=== PATIENT | female | born 1970 | race Caucasian/White ===

== ENCOUNTER 2020-03-25 08:18 | Observation (INO) | payer OTHER ==
[~2020-03-25] VITALS: Ht 167.7 cm; Wt 131.7 kg
--- NOTE | 2020-03-25 08:38 | ED General ---
General Chief Complaint: General Problems/Pain Source of Information: Patient, EMS Exam Limitations: No Limitations History of Present Illness Date Seen by Provider: Mar 25, 2020 Time Seen by Provider: 08:33 Initial Comments Patient brought in by ambulance for awaking this morning with severe itching starting in the right arm spreading throughout her body she felt presyncopal with subsequent development of diarrhea and some abdominal cramping and then nausea and vomiting no fever is still itching no significant shortness of breath had a history of previous allergic reactions urticaria in the past and no tr eatment for this prior to arrival Timing/Duration: 1 Hour Severity: Moderate Associated Systoms: No Chest Pain; Diaphoresis, Nausea/Vomiting, Weakness, Other (vomiting and diarrhea) Allergies and Home Medications Allergies Coded Allergies: acetaminophen (Verified Allergy, Unknown, 03/25/20) hydrocodone (Verified Allergy, Unknown, 03/25/20) sulfamethoxazole (Verified Allergy, Unknown, 03/25/20) trimethoprim (Verified Allergy, Unknown, 03/25/20) Uncoded Allergies: IVP DYE (Allergy, Unknown, 03/25/20) Patient Home Medication List Home Medication List Reviewed: Yes Review of Systems Review of Systems Constitutional: diaphoresis, dizziness, weakness EENTM: no symptoms reported Respiratory: see HPI Cardiovascular: see HPI Gastrointestinal: see HPI Genitourinary: no symptoms reported Skin: see HPI Psychiatric/Neurological: No Symptoms Reported Hematologic/Lymphatic: No Symptoms Reported Immunological/Allergic: see HPI Past Oqnutvm-Xezzyv-Fjvvlx Hx Past Med/Social Hx: Reviewed Nursing Past Med/Soc Hx Patient Social History Alcohol Use: Denies Use Physical Exam Vital Signs Vital Signs - First Documented 03/25/20 03/25/20 08:25 08:47 Temp 35.9 Pulse 83 Resp 16 B/P (MAP) 118/80 (93) Pulse Ox 97 O2 Delivery Room Air O2 Flow Rate 2.00 FiO2 97 Capillary Refill : Height, Weight, BMI Height: '" Weight: lbs. oz. kg; BMI Method: General Appearance: No Apparent Distress, WD/WN Eyes: Bilateral Eye Normal Inspection, Bilateral Eye PERRL, Bilateral Eye EOMI HEENT: Pharynx Normal, Moist Mucous Membranes; No Scleral Icterus (L), No Scleral Icterus (R) Neck: Full Range of Motion, Normal Inspection, Non Tender, Supple Respiratory: Chest Non Tender, Lungs Clear, Normal Breath Sounds, No Accessory Muscle Use Cardiovascular: Regular Rate, Rhythm, No Edema, No Gallop Gastrointestinal: Normal Bowel Sounds, No Organomegaly, Non Tender, Soft Extremity: Normal Capillary Refill, Normal Inspection, Normal Range of Motion, Other (spell thrill R antecubital fossa) Neurologic/Psychiatric: Alert, Oriented x3, No Motor/Sensory Deficits, Normal Mood/Affect, player services representative II-XII Norm as Tested Skin: Normal Color, Warm/Dry Progress/Results/Core Measures Suspected Sepsis SIRS Temperature: Pulse: Respiratory Rate: Laboratory Tests 03/25/20 08:27: White Blood Count 7.2 Blood Pressure / Mean: Laboratory Tests 03/25/20 08:27: Creatinine 4.56H, Platelet Count 276, Total Bilirubin 0.2 Results/Orders Lab Results Laboratory Tests Test 03/25/20 08:27 Range/Units White Blood Count 7.2 4.3-11.0 10^3/uL Red Blood Count 3.86 L 4.35-5.85 10^6/uL Hemoglobin 11.8 11.5-16.0 G/DL Hematocrit 37 35-52 % Mean Corpuscular Volume 95 80-99 FL Mean Corpuscular Hemoglobin 31 25-34 PG Mean Corpuscular Hemoglobin Concent 32 32-36 G/DL Red Cell Distribution Width 13.6 10.0-14.5 % Platelet Count 276 130-400 10^3/uL Mean Platelet Volume 10.5 H 7.4-10.4 FL Neutrophils (%) (Auto) 45 42-75 % Lymphocytes (%) (Auto) 51 H 12-44 % Monocytes (%) (Auto) 4 0-12 % Eosinophils (%) (Auto) 0 0-10 % Basophils (%) (Auto) 0 0-10 % Neutrophils # (Auto) 3.2 1.8-7.8 X 10^3 Lymphocytes # (Auto) 3.6 1.0-4.0 X 10^3 Monocytes # (Auto) 0.3 0.0-1.0 X 10^3 Eosinophils # (Auto) 0.0 0.0-0.3 10^3/uL Basophils # (Auto) 0.0 0.0-0.1 10^3/uL Sodium Level 138 135-145 MMOL/L Potassium Level 4.8 3.6-5.0 MMOL/L Chloride Level 108 H 98-107 MMOL/L Carbon Dioxide Level 16 L 21-32 MMOL/L Anion Gap 14 5-14 MMOL/L Blood Urea Nitrogen 69 H 7-18 MG/DL Creatinine 4.56 H 0.60-1.30 MG/DL Estimat Glomerular Filtration Rate 10 BUN/Creatinine Ratio 15 Glucose Level 304 H 70-105 MG/DL Calcium Level 8.9 8.5-10.1 MG/DL Corrected Calcium 9.4 8.5-10.1 MG/DL Magnesium Level 2.0 1.6-2.4 MG/DL Total Bilirubin 0.2 0.1-1.0 MG/DL Aspartate Amino Transf (AST/SGOT) 8 5-34 U/L Alanine Aminotransferase (ALT/SGPT) 12 0-55 U/L Alkaline Phosphatase 76 40-136 U/L Troponin I < 0.30 <0.30 NG/ML Total Protein 6.9 6.4-8.2 GM/DL Albumin 3.4 3.2-4.5 GM/DL Lipase 88 H 8-78 U/L My Orders Orders - YANCY MADISON DO Cbc With Automated Diff (03/25/20 08:23) Magnesium (03/25/20 08:23) Chest 1 View Ap/Pa Only (03/25/20 08:23) Ekg Tracing (03/25/20 08:23) Comprehensive Metabolic Panel (03/25/20 08:23) O2 (03/25/20 08:23) Monitor-Rhythm Ecg Trace Only (03/25/20 08:23) Ed Iv/Invasive Line Start (03/25/20 08:23) Lipase (03/25/20 08:23) Troponin I Fs (03/25/20 08:23) Diphenhydramine Injection (Benadryl Inje (03/25/20 08:45) Methylprednisolone Sod Succ (Solu-Medrol (03/25/20 08:45) Famotidine Injection (Pepcid Injection) (03/25/20 08:45) Epinephrine 1 Mg Injection (Adrenalin I (03/25/20 08:44) Epinephrine 1 Mg Injection (Adrenalin I (03/25/20 09:00) Medications Given in ED Current Medications Medications Dose Ordered Sig/Damian Route Start Time Stop Time Status Last Admin Dose Admin Diphenhydramine HCl 25 mg ONCE ONCE IVP 03/25/20 08:45 03/25/20 08:46 DC 03/25/20 08:48 25 MG Epinephrine HCl 1 mg STK-MED ONCE .ROUTE 03/25/20 08:44 03/25/20 08:51 DC 03/25/20 08:54 0.5 MG Famotidine 20 mg ONCE ONCE IVP 03/25/20 08:45 03/25/20 08:46 DC 03/25/20 08:48 20 MG Methylprednisolone Sodium Succinate 125 mg ONCE ONCE IVP 03/25/20 08:45 03/25/20 08:46 DC 03/25/20 08:48 125 MG Vital Signs/I&O 03/25/20 03/25/20 03/25/20 08:25 08:47 10:43 Temp 35.9 36.9 Pulse 83 65 Resp 16 16 B/P (MAP) 118/80 (93) 167/66 Pulse Ox 97 100 O2 Delivery Room Air Nasal Cannula Nasal Cannula O2 Flow Rate 2.00 2.00 FiO2 97 Capillary Refill : Progress Note : Time: 08:38 Progress Note Given the patient's presentation of itching with both vomiting diarrhea generalized weakness and a history of previous allergic reactions makes jasmeet phylaxis a more likely diagnosis differential would include ACS electrolyte disturbance from her chronic renal failure as well as gastroenteritis. Plan will be antihistamines operative labs screening reevaluation to determine need for further care. ECG Initial ECG Impression Date: Mar 25, 2020 Initial ECG Impression Time: 08:59 Initial ECG Rate: 82 Initial ECG Rhythm: Normal Sinus Initial ECG Intervals: Normal Initial ECG Impression: Nonspecific Changes Departure Communication (Admissions) Time/Spoke to Admitting Phy: 09:[address] Horan who accepted the patient in stepdown observation admission status to [facility] after discussion of the case. 905: Patient had developed urticaria and continued nausea which clarified the issue that this is most likely anaphylactic reaction. Epinephrine was administered. The urticaria improved somewhat nausea and vomiting settled she received H1 blockers H2 blockers as well as steroids. The plan will be transferred to [place] once I see her chemistries for observation admission for acute anaphylactic reaction Impression Primary Impression: Anaphylaxis Disposition: 09 ADMITTED INPATIENT Condition: Improved Admissions Decision to Admit Reason: Admit from ER (General) Decision to Admit/Date: Mar 25, 2020 Time/Decision to Admit Time: 09:05 Transfer Transfer Reason: Exceeds level of care Time Spoke to Accepting Phy: 09:32 Transfer Progress Notes Local Dr. Horan who accepted the admission [place] Transfer Time: 09:20 Transfer Facility: [facility] Method of Transfer: EMS Departure-Patient Inst. Referrals: NO,LOCAL PHYSICIAN (PCP/Family) Primary Care Physician YANCY MADISON DO Mar 25, 2020 08:38
[2020-03-25 08:43] LABS: BASOPHILS % (AUTO) 0 % (0-10); EOSINOPHILS % (AUTO) 0 % (0-10); HEMATOCRIT 37 % (35-52); HEMOGLOBIN 11.8 G/DL (11.5-16.0); MEAN CORPUSCULAR HEMOGLOBIN 31 PG (25-34); MEAN CORPUSCULAR HGB CONC 32 G/DL (32-36); MEAN CORPUSCULAR VOLUME 95 FL (80-99); MEAN PLATELET VOLUME 10.5 FL (7.4-10.4); MONOCYTES % (AUTO) 4 % (0-12); NEUTROPHILS % (AUTO) 45 % (42-75); PLATELET COUNT 276 10^3/uL (130-400); RED CELL DISTRIBUTION WIDTH 13.6 % (10.0-14.5); WHITE BLOOD COUNT 7.2 10^3/uL (4.3-11.0)
[2020-03-25 08:44] LABS: LYMPHOCYTES # (AUTO) 3.6 X 10^3 (1.0-4.0); LYMPHOCYTES % (AUTO) 51 % (12-44); MONOCYTES # (AUTO) 0.3 X 10^3 (0.0-1.0); NEUTROPHILS # (AUTO) 3.2 X 10^3 (1.8-7.8)
[2020-03-25] MEDS ORDERED: EPINEPHrine INJECTION 1 MG/ML AMP ONE (08:44)
[2020-03-25] MEDS ORDERED: FAMOTIDINE 20MG/2ML IV (PEPCID) IVP ONE (08:45)
[2020-03-25] MEDS ORDERED: methylPREDNISolone 125 MG (Solu-MEDROL) VIAL IVP ONE (08:45)
[2020-03-25] MEDS ORDERED: diphenhydrAMINE 50 MG/ML INJ (BENADRYL) IVP ONE (08:45)
[2020-03-25] MEDS ORDERED: EPINEPHrine INJECTION 1 MG/ML AMP IM ONE (09:00)
[2020-03-25 09:01] LABS: POTASSIUM 4.8 MMOL/L (3.6-5.0)
[2020-03-25 09:02] LABS: BILIRUBIN,TOTAL 0.2 MG/DL (0.1-1.0); CALCIUM 8.9 MG/DL (8.5-10.1); CREATININE SERUM 4.56 MG/DL (0.60-1.30); TOTAL PROTEIN 6.9 GM/DL (6.4-8.2)
[2020-03-25 09:03] LABS: ALBUMIN 3.4 GM/DL (3.2-4.5)
--- NOTE | 2020-03-25 09:08 | Diagnostic Imaging Report ---
EXAM: CHEST 1 VIEW AP/PA ONLY INDICATION: Nausea. Diarrhea. Lightheadedness. Pruritis. COMPARISON: None. FINDINGS: Normal heart size and central pulmonary vascularity. No focal pulmonary opacity, pleural effusion or pneumothorax. No acute osseous findings IMPRESSION: No acute cardiopulmonary findings. Dictated by: Dictated on workstation # [id number]
--- OUTSIDE RECORDS SUMMARY | 2020-03-25 10:26 | XMS REPORT | Continuity of Care Document ---
Demographics Preferred Language Unknown Marital Status Unknown Confucianist Affiliation Unknown Race Unknown Ethnic Group Unknown Author Organization Unknown Address Unknown Phone Unavailable Allergies There is no data. Medications There is no data. Problems There is no data. Procedures There is no data. Results Test Result Range Complete blood count (CBC) with automate d white blood cell (WBC) differential - 03/25/20 08:27 Blood leukocytes automated count (number/volume) 7.2 10*3/uL 4.3-11.0 Blood erythrocytes automated count (number/volume) 3.86 10*6/uL 4.35-5.85 Venous blood hemoglobin measurement (mass/volume) 11.8 g/dL 11.5-16.0 Blood hematocrit (volume fraction) 37 % 35-52 Automated erythrocyte mean corpuscular volume 95 [ foz_us] 80-99 Automated erythrocyte mean corpuscular h emoglobin (mass per erythrocyte) 31 pg 25-34 Automated erythrocyte mean corpuscular h emoglobin concentration measurement (mass/volume) 32 g/dL 32-36 Automated erythrocyte distribution width ratio 13. 6 % 10.0- 14.5 Automated blood platelet count (count/volume) 276 10*3/uL 130-400 Automated blood platelet mean volume measurement 10.5 [foz_us] 7.4-10.4 Automated blood neutrophils/100 leukocytes 45 % 42-75 Automated blood lymphocytes/100 leukocytes 51 % 12-44 Blood monocytes/100 leukocytes 4 % 0-12 Automated blood eosinophils/100 leukocytes 0 % 0-10 Automated blood basophils/100 leukocytes 0 % 0-10 Blood neutrophils automated count (number/volume) 3.2 10*3 1.8-7.8 Blood lymphocytes automated count (number/volume) 3.6 10*3 1.0-4.0 Blood monocytes automated count (number/volume) 0. 3 10*3 0.0-1.0 Automated eosinophil count 0.0 10*3/uL 0 .0-0.3 Automated blood basophil count (count/volume) 0.0 10*3/uL 0.0-0.1 TROPONIN I FS - 03/25/20 08:27 TROPONIN I FS < 0.30 <0.30 Comprehensive metabolic panel - 03/25/20 08:27 Serum or plasma sodium measurement (moles/volume) 138 mmol/L 135-145 Serum or plasma potassium measurement (moles/volume) 4.8 mmol/L 3.6-5.0 Serum or plasma chloride measurement (moles/volume) 108 mmol/L 98-107 Carbon dioxide 16 mmol/L 21-32 Serum or plasma anion gap determination (moles/volume) 14 mmol/L 5-14 Serum or plasma urea nitrogen measurement (mass/volume ) 69 mg/dL 7-18 Serum or plasma creatinine measurement (mass/volume) 4.56 mg/dL 0.60-1.30 Serum or plasma urea nitrogen/creatinine mass ratio 15 NRG Serum or plasma creatinine measurement w ith calculation of estimated glomerular filtration rate 10 NRG Serum or plasma glucose measurement (mass/volume) 304 mg/dL 70-105 Serum or plasma calcium measurement (mass/volume) 8.9 mg/dL 8.5-10.1 Serum or plasma total bilirubin measurement (mass/volu me) 0.2 mg/dL 0.1-1.0 Serum or plasma alkaline phosphatase gertrudis surement (enzymatic activity/volume) 76 U/L 40-136 Serum or plasma aspartate aminotransfera se measurement (enzymatic activity/volume) 8 U/L 5-34 Serum or plasma alanine aminotransferase measurement (enzymatic activity/volume) 12 U/L 0-55 Serum or plasma protein measurement (mass/volume) 6.9 g/dL 6.4-8.2 Serum or plasma albumin measurement (mass/volume) 3.4 g/dL 3.2-4.5 CALCIUM CORRECTED 9.4 mg/dL 8.5-10.1 Magnesium - 03/25/20 08:27 Magnesium 2.0 mg/dL 1.6-2.4 Lipase - 03/25/20 08:27 Lipase 88 U/L 8-78 Encounters ACCT No. Visit Date/Time Discharge Status Pt. Type Provider Facility Loc./Unit Complaint [id number] 03/25/2020 08:44:00 Document Registration
[2020-03-25 12:00] VITALS: BP 138/82
--- NOTE | 2020-03-25 12:33 | History & Physical-Hospitalist ---
History of Present Illness HPI/Chief Complaint Pt is a 49yoCF with a PMH of IDDMII, HTN, CKD Stage 5 not yet on dialysis who presented to the ER due to itching, nausea, vomiting. She states that she woke up with itching in her arm. She walked to the bathroom and then developed itching over her whole body. She then got very nauseated and started vomiting. She then developed SOB and had a near syncopal episode. She told her to call EMS at that time. She has had a previous similar episode roughly 2 years ago. She does not have an epipen at home despite this. Source: patient Date Seen 03/25/20 Time Seen by a Provider: 12:33 Attending Physician Dayron Lux MD PCP No,Local Physician Referring Physician Date of Admission Mar 25, 2020 at 10:22 Home Medications & Allergies Home Medications Reviewed patient Home Medication Reconciliation performed by pharmacy medication reconciliations instrument and controls technician and/or nursing. Patients Allergies have been reviewed. Allergies Allergies Coded Allergies acetaminophen (Verified Allergy, Unknown, 03/25/20) hydrocodone (Verified Allergy, Unknown, 03/25/20) sulfamethoxazole (Verified Allergy, Unknown, 03/25/20) trimethoprim (Verified Allergy, Unknown, 03/25/20) Uncoded Allergies IVP DYE ( Allergy, Unknown, 03/25/20) Past Lpjozou-Fipkmh-Ikqmbz Hx Past Med/Social Hx: Reviewed Nursing Past Med/Soc Hx Patient Social History Employed/Student: employed Alcohol Use: Denies Use Recreational Drug Use: No Smoking Status: Never a Smoker 2nd Hand Smoke Exposure: No Recent Foreign Travel: No Contact w/other who traveled: No Recent Hopitalizations: No Recent Infectious Disease Expo: No Seasonal Allergies Seasonal Allergies: No Past Medical History Surgeries: Section, Hysterectomy Cardiac: Hypertension Hysterectomy Genitourinary: Renal Failure Endocrine: Diabetes, Insulin dep History of Blood Disorders: No Review of Systems Constitutional: No chills, No fever; weakness EENTM: throat swelling Respiratory: see HPI, short of breath; No wheezing Cardiovascular: palpitations, syncope (near syncope) Gastrointestinal: diarrhea, nausea, vomiting Genitourinary: no symptoms reported Musculoskeletal: no symptoms reported Skin: no symptoms reported Psychiatric/Neurological: No Symptoms Reported Physical Exam Physical Exam Vital Signs Vital Signs - First Documented 4/25/20 4/25/20 08:25 08:47 Temp 35.9 Pulse 83 Resp 16 B/P (MAP) 118/80 (93) Pulse Ox 97 O2 Delivery Room Air O2 Flow Rate 2.00 FiO2 97 Capillary Refill : Less Than 3 Seconds Height, Weight, BMI Height: '" Weight: lbs. oz. kg; 46.00 BMI Method: General Appearance: No Apparent Distress, WD/WN, Anxious HEENT: PERRL/EOMI, Pharynx Normal, Moist Mucous Membranes; No Scleral Icterus (L), No Scleral Icterus (R) Neck: Normal Inspection, Supple; No Thyromegaly Respiratory: Lungs Clear, No Accessory Muscle Use, No Respiratory Distress Cardiovascular: Regular Rate, Rhythm, No Murmur Gastrointestinal: Normal Bowel Sounds, Non Tender, Soft Extremity: Normal Capillary Refill, No Calf Tenderness, No Pedal Edema Neurologic/Psychiatric: Alert, Oriented x3, Normal Mood/Affect Skin: Normal Color, Warm/Dry; No Mottled, No Rash Results Results/Procedures Labs Laboratory Tests 03/25/20 08:27 Patient resulted labs reviewed. Imaging: Reviewed Imaging Report Imaging Date of Exam:03/25/20 CHEST 1 VIEW AP/PA ONLY EXAM: CHEST 1 VIEW AP/PA ONLY INDICATION: Nausea. Diarrhea. Lightheadedness. Pruritis. COMPARISON: None. FINDINGS: Normal heart size and central pulmonary vascularity. No focal pulmonary opacity, pleural effusion or pneumothorax. No acute osseous findings IMPRESSION: No acute cardiopulmonary findings. Assessment/Plan Admission Diagnosis Anaphylaxis Admission Status: Observation Assessment and Plan Anaphylaxis unclear etiology Responded to epi in ER Epi and Benadryl prn Prednisone and Claritin started Monitor in ICU CKD Stage 5- not on dialysis Creatine 4 GFR normally at [address] but not on dialysis Trend renal function Continue home meds when med rec done HTN Cotinue home meds IDDMII Continue home meds DAYRON LUX MD Mar 25, 2020 12:33
[2020-03-25] MEDS ORDERED: diphenhydrAMINE 50 MG/ML INJ (BENADRYL) IVP PRN (12:45)
[2020-03-25] MEDS ORDERED: CATHETER FLUSH 10 ML SYR IV PRN (12:45)
[2020-03-25] MEDS ORDERED: predniSONE 20 MG TAB PO NR (12:45)
[2020-03-25] MEDS ORDERED: LORATADINE (CLARITIN) 10 MG TAB PO NR (12:45)
[2020-03-25] MEDS ORDERED: EPINEPHrine INJECTION 1 MG/ML AMP IM PRN (12:45)
[2020-03-25 13:00] VITALS: BP 156/94
[2020-03-25 14:00] VITALS: BP 153/99
[2020-03-25 15:00] VITALS: BP 151/97
[2020-03-25 16:00] VITALS: BP 172/99
[2020-03-25] MEDS ORDERED: DULA1.5P2 SQ (17:18)
[2020-03-25] MEDS ORDERED: LISI40TA PO (17:18)
[2020-03-25] MEDS ORDERED: BAKING SODA PO (17:18)
[2020-03-25] MEDS ORDERED: CALC300T4 PO (17:18)
[2020-03-25] MEDS ORDERED: CARV6.252 PO (17:18)
[2020-03-25] MEDS ORDERED: SPIR25TA PO (17:18)
[2020-03-25] MEDS: inSUlin ASPART (NovoLOG) 1 UNIT/0.01 ML (CHARGE PER UNIT) SC SCH ×3 (17:34→20:58)
[2020-03-25] MEDS: CATHETER FLUSH 10 ML SYR IV SCH ×2 (17:34→21:06)
[2020-03-25 20:00] VITALS: BP 140/81
--- NOTE | 2020-03-25 20:36 | NUR ---
INFORMED DR. VITALE OF PATIENT'S BLOOD SUGAR OF 429. ORDERS RECEIVED TO CHANGE TO INSULIN SLIDING SCALE C.
[2020-03-26] VITALS: BP 130/80
[2020-03-26 03:25] LABS: BASOPHILS % (AUTO) 0 % (0-10); EOSINOPHILS % (AUTO) 0 % (0-10); HEMATOCRIT 33 % (35-52); HEMOGLOBIN 10.8 G/DL (11.5-16.0); LYMPHOCYTES # (AUTO) 0.7 X 10^3 (1.0-4.0); LYMPHOCYTES % (AUTO) 5 % (12-44); MEAN CORPUSCULAR HEMOGLOBIN 31 PG (25-34); MEAN CORPUSCULAR HGB CONC 33 G/DL (32-36); MEAN CORPUSCULAR VOLUME 93 FL (80-99); MEAN PLATELET VOLUME 10.6 FL (7.4-10.4); MONOCYTES # (AUTO) 0.2 X 10^3 (0.0-1.0); MONOCYTES % (AUTO) 1 % (0-12); NEUTROPHILS % (AUTO) 94 % (42-75); PLATELET COUNT 202 10^3/uL (130-400); RED CELL DISTRIBUTION WIDTH 13.8 % (10.0-14.5); WHITE BLOOD COUNT 15.9 10^3/uL (4.3-11.0)
[2020-03-26 03:46] LABS: ALBUMIN 3.4 GM/DL (3.2-4.5); BILIRUBIN,TOTAL 0.2 MG/DL (0.1-1.0); CALCIUM 8.3 MG/DL (8.5-10.1); CREATININE SERUM 4.63 MG/DL (0.60-1.30); TOTAL PROTEIN 6.8 GM/DL (6.4-8.2)
[2020-03-26 03:59] LABS: BAND NEUTROPHILS 9 %; MONOCYTES % (MANUAL) 3 %; NEUTROPHILS % (MANUAL) 83 %; REACTIVE LYMPHOCYTES 2 %
[2020-03-26 04:00] LABS: LYMPHOCYTES % (MANUAL) 3 %; RBC MORPH NORMAL
--- NOTE | 2020-03-26 06:20 | NUR ---
Patient potassium level 6.[address] Lux notified and orders received. Patient refusing "any medications that cause high potassium", is concerned about prednisone and pepcid. States those are not needed since "no longer having allergic reaction". EICU also aware of potassium level and placed orders as well. Will continue to monitor.
[2020-03-26 06:22] VITALS: BP 146/84
[2020-03-26] MEDS: inSUlin ASPART (NovoLOG) 1 UNIT/0.01 ML (CHARGE PER UNIT) SC SCH ×2 (06:23→06:27)
[2020-03-26] MEDS: CATHETER FLUSH 10 ML SYR IV SCH (06:24)
[2020-03-26] MEDS: predniSONE 20 MG TAB PO SCH ×3 (06:31→07:03)
[2020-03-26] MEDS ORDERED: FUROSEMIDE 40 MG/4 ML INJ (LASIX) ONE (06:37)
[2020-03-26] MEDS ORDERED: SOD POLYSTERENE 15 GM/60 ML (KAYEXALATE) UNIT DOSE PO ONE (06:45)
[2020-03-26] MEDS ORDERED: SODIUM BICARB 8.4% 50 MEQ/50 ML VIAL IV ONE (06:45)
[2020-03-26] MEDS ORDERED: CALCIUM GLUCONATE 10% INJ 4.65 MEQ in NS (IVPB) 50 ML IV ONE (06:45)
[2020-03-26] MEDS ORDERED: FUROSEMIDE 40 MG/4 ML INJ (LASIX) IVP ONE (06:45)
[2020-03-26] MEDS ORDERED: CALCIUM GLUC. 10% 4.65 MEQ/10 ML VIAL ONE (06:47)
[2020-03-26] MEDS ORDERED: NS (IVPB) 100 ML ONE (06:48)
--- NOTE | 2020-03-26 07:00 | NUR ---
TIMELINE NOTE: 0700: REPORT RECEIVED FROM SHANTA PEDROZA. 0730: ASSISTED PT TO COMMODE, SHE HAD NO COMPLAINTS. 0815: PT PUSHED CALL LIGHT WANTING TO KNOW HER LAB RESULTS. MT CALLED THIS RN AND ADVISED. I STOPPED BY PATIENTS ROOM AND TOLD HER I WOULD BE IN SHORTLY TO DISCUSS HER LAB RESULTS. PT STATES SHE WAS UPSET ABOUT WHAT MEDICATIONS SHE HAD BEEN GIVEN BEFORE THE START OF THIS RN SHIFT. I TOLD HER WE WOULD GO OVER EVERYTHING SHE HAD RECEIVED PRIOR TO THE START OF THIS SHIFT THIS RN HAD NOT ADMINISTERED ANY MEDICATION. SHE VOICED UNDERSTANDING. 0840: DR VITALE AT BEDSIDE, DISCUSSED HER CARE AND MEDICATIONS. PT VOICED UNDERSTANDING. ADVISED PATIENT I WOULD RETURN SOON WITH MORNING MEDS. ASSESSMENT COMPLETED. SHE HAD NO COMPLAINTS. 0910: THIS RN WALKED INTO THE ROOM. PT WAS VERY ACCUSATORY REGARDING MEDICATIONS GIVEN AND STATED "I'M NOT WORRIED ABOUT MY BLOODS SUGAR BEING 400, IM WORRIED ABOUT HYDRATION. " PT STATED "I KNOW WHAT I NEED TO DO FOR MY KIDNEYS AND I NEED FLUID." ICE WATER WAS PROVIDED TO PATIENT. THIS RN READ ALL MEDICATIONS GIVEN TO PATIENT THIS AM FROM EMAR. PT GIVEN HER CARVEDILOL BUT SHE REFUSED TO TAKE THE CLARITIN OR PEPCID. POTASSIUM, BUN, AND CREATININE LAB RESULTS GIVEN VERBALLY TO PATIENT. PT MADE AWARE THAT DR VITALE HAD ORDERED ADDITIONAL LABS TO BE DONE NOW. PATIENT THEN ASKED THIS RN TO READ HER EVERY LINE OF LAB RESULT IN HER CHART. THIS RN ADVISED PATIENT THAT I WAS UNABLE TO READ EVERY LINE RESULTED TO PATIENT AT THIS TIME SECONDARY TO CARE OF ANOTHER CRITICAL PATIENT. PT ASKED FOR PRINTED RESULTS OF HER LABS. I ADVISED PER HIPPA, SHE WOULD NEED TO SIGN A RECORDS RELEASE. PT BECAME VERY UPSET, RAISING HER VOICE AND WOULD NOT LET THIS RN SPEAK. THIS RN LEFT THE ROOM SECONDARY TO HER BEHAVIOR. TOTAL TIME IN ROOM WAS APPROX 20 MINUTES. 0935: NOTIFIED BY MT THAT PATIENT HAD USED CALL LIGHT AND SAID SHE WANTED TO LEAVE. CHARGE NURSE IN TO SPEAK WITH PATIENT. PT AGITATED AND VOICE COULD BE HEARD FROM NURSES STATION. SEE HER NOTES. PORCELAIN TECHNICIAN AWARE OF SITUATION. DR VITALE AWARE. 1008: PATIENT LEFT UNIT UNDER HER OWN POWER AMA.
[2020-03-26 08:45] VITALS: BP 173/96
--- NOTE | 2020-03-26 08:57 | Progress Note - Hospitalist ---
Subjective HPI/CC On Admission Date Seen by Provider: Mar 26, 2020 Time Seen by Provider: 08:51 Pt is a 49yoCF with a PMH of IDDMII, HTN, CKD Stage 5 not yet on dialysis who presented to the ER due to itching, nausea, vomiting. She states that she woke up with itching in her arm. She walked to the bathroom and then developed itchin g over her whole body. She then got very nauseated and started vomiting. She then developed SOB and had a near syncopal episode. She told her to call EMS at that time. She has had a previous similar episode roughly 2 years ago. She does not have an epipen at home despite this. Subjective/Events-last exam Pt reports feeling better today. Needs to have a BM. Otherwise no issues. Discussed resumption of home meds with her. Her will try to bring in her insulin and trulicity. Objective Exam Vital Signs Vital Signs Date Time Temp Pulse Resp B/P (MAP) Pulse Ox O2 Delivery O2 Flow Rate FiO2 03/26/20 08:15 36.4 03/26/20 06:22 71 20 146/84 (104) 99 Nasal Cannula 2.00 03/25/20 08:47 97 Capillary Refill : Less Than 3 Seconds General Appearance: No Apparent Distress, WD/WN, Anxious, Obese Respiratory: Lungs Clear, No Accessory Muscle Use, No Respiratory Distress Cardiovascular: Regular Rate, Rhythm, No Murmur Neurologic/Psychiatric: Alert, Oriented x3 Results/Procedures Lab Laboratory Tests 03/26/20 03:04 Patient resulted labs reviewed. Imaging: Reviewed Imaging Report Assessment/Plan Assessment and Plan Assess & Plan/Chief Complaint Anaphylaxis unclear etiology Epi and Benadryl prn Prednisone and Claritin started- patient refused prednisone this AM Monitor in ICU, discussed case withe [facility] today CKD Stage 5- not on dialysis, still makes urine Hyperkalemia Creatine 4.6 today GFR normally at 10- stable here Fistula in place but not on dialysis Trend renal function Lasix, bicarb, Kayexalate, and calcium gluconate given HTN Continue coreg, hold Lisinopril from hyperK IDDMII SSI ordered, will attempt to bring her own insulin in Diagnosis/Problems Diagnosis/Problems (1) Anaphylaxis Status: Acute Qualifiers: Encounter type: initial encounter Qualified Codes: T78.2XXA - Anaphylactic shock, unspecified, initial encounter (2) CKD (chronic kidney disease) Qualifiers: Chronic kidney disease stage: stage 5, not on chronic dialysis Qualified Codes: N18.5 - Chronic kidney disease, stage 5 (3) Insulin dependent diabetes mellitus Status: Chronic (4) Essential (primary) hypertension Status: Chronic Clinical Quality Measures DVT/VTE Risk/Contraindication: Risk Factor Score Per Nursin RFS Level Per Nursing on Admit: 2=Moderate DAYRON VITALE MD Mar 26, 2020 08:57
[2020-03-26] MEDS ORDERED: FAMOTIDINE 20MG/2ML IV (PEPCID) IV SCH (09:00)
[2020-03-26] MEDS ORDERED: LORATADINE (CLARITIN) 10 MG TAB PO SCH (09:00)
[2020-03-26] MEDS ORDERED: CARVEDILOL 6.25 MG (COREG) TAB PO SCH (09:00)
[2020-03-26] MEDS ORDERED: SPIRONOLACTONE 25 MG (ALDACTONE) TAB PO SCH (09:00)
[2020-03-26] MEDS ORDERED: lisINopril 40 MG (PRINIVIL) TABLET PO SCH (09:00)
--- NOTE | 2020-03-26 10:00 | NUR ---
THIS NURSE ENTERED PATIENT ROOM AT THIS TIME PER REQUEST OF PATIENTS NURSE. UPON ENTERING PATIENT WAS CRYING. THIS NURSE ASKED PATIENT WHAT WAS GOING ON. PATIENTS FIRST ANSWER WAS "I NEED THIS IV OUT, IM LEAVING", THIS NURSE STATED THAT SHE WOULD HAVE TO SIGN AMA PAPERWORK AND THAT THE BENEFIT OF STAYING WOULD BE CONTINUED CARE AND LEAVING AGAINST MEDICAL ADVICE COULD RESULT IN . PATIENT THEN BEGAN STATING THAT HER NURSE WAS NOT GIVING HER INFORMATION THAT SHE REQUESTED, THAT WE WERE NOT TREATING HER APPROPRIATELY. THIS NURSE APOLOGIZED FOR ANY MISUNDERSTANDING THAT WAS PERCEIVED DURING HER STAY. PATIENT STATED SHE WANTED TO KNOW ALL HER LAB RESULTS AND WANTED THEM ALL ADDRESSED. PREVIOUS NURSE WENT OVER CRITICAL RESULTS WITH PATIENT, BUT WAS UNABLE TO GO OVER EVERY RESULT WITH PATIENT R/T THE NEED TO TAKE CARE OF OTHER CRITICAL PATIENTS. PATIENT WAS NOT HAPPY WITH THAT SITUATION, SHE WANTED TO KNOW LAB RESULT FOR EVERY LAB. PATIENT THEN STATED SHE WAS UPSET THAT SHE WAS IN "OBSERVATION", STATING THAT "DOES THAT MEAN I DON'T GET THE SAME CARE EVERYONE ELSE", THIS NURSE STATED THAT WAS NOT THE CASE. PATIENT THEN BEGAN GOING OVER CHRONIC CONDITIONS WITH THIS NURSE, STATING "THAT SHE HAS INSURANCE NOW, AND I CAN GET THE CARE I HAVE NEEDED FOR SEVERAL MONTHS", THIS NURSE TOLD PATIENT WHILE IN THE HOSPITAL WE TREAT HER CURRENT AILMENTS, CHRONIC ISSUES ARE GENERALLY ADDRESSED BY PCP ON AN OUTPATIENT PROCESS, BUT THAT OUR DOCTORS ARE ALWAYS CHECKING EVERYTHING AND WILL TREAT THINGS THEY ARISE. PATIENT WOULD RAISE VOICE TO THIS NURSE DURING CONVERSATION. MULTIPLE TIMES THIS NURSE REQUESTED THAT PATIENT PLEASE NOT RAISE VOICE TO THIS NURSE, THAT I AM JUST TRYING TO HELP HER AND UNDERSTAND WHAT PROBLEM IS. PATIENT THEN APOLOGIZED, BUT DURING THE CONVERSATION WOULD KEEP RAISING HER VOICE. THIS NURSE AGAIN ASKED WHAT CAN I DO TO HELP YOU NOW. PATIENT STATED SHE WAS CONCERNED ABOUT HER POTASSIUM, AND THAT IT IS A CRITICAL LEVEL AND THE NIGHT NURSE WAS NOT GOING TO ADDRESS IT. THIS NURSE EXPLAINED TO HER, THAT ALL CRITICAL LEVELS ARE ADDRESSED BY THE NURSES, AND PHYSICIANS. THAT HER LEVEL WAS HIGH, BUT ACCORDING TO OUR LABS, IT WAS NOT CRITICAL, AND THAT IS WAS ADDRESSED BY THE NURSE ON PREVIOUS SHIFT. PATIENT THEN STATED, "IT WASN'T ADDRESSED UNTIL I SAID SOMETHING", THIS NURSE ASSURED PATIENT THAT POTASSIUM WAS ADDRESSED, THAT WE HAVE MULTIPLE PHYSICIANS ON, INCLUDING EICU TO ADDRESS ALL LAB RESULTS. THIS NURSE AGAIN ASKED PATIENT WHAT I COULD DO TO HELP. PATIENT THEN SAID, "YOUR NOT GOING TO HELP ME, YOUR JUST GOING TO SIDE WITH THE OTHER NURSES. I WANT THIS REPORTED", THIS NURSE ASSURED HER THAT I WOULD ADDRESS HER CONCERNS WITH IT COMPLIANCE MANAGER, BUT AT THIS TIME IT COMPLIANCE MANAGER WAS UNABLE TO COME TO UNIT SHE WAS ASSISTING ON ANOTHER FLOOR. IT COMPLIANCE MANAGER WAS AWARE OF SITUATION, ET UPDATED ON SITUATION. PATIENT THEN AGAIN STATED SHE WAS WAITING FOR HER TO PICK HER UP, AND WANTED HER IV OUT. THIS NURSE D/C'D PATIENTS IV, TIP INTACT, ET REMOVED PATIENTS TELEMETRY. THIS NURSE AGAIN WENT OVER AMA PAPERWORK, STATING THAT STAYING WOULD CONTINUE WITH MEDICAL TREATMENT ET LEAVING COULD RESULT IN . PATIENT BEGAN TO YELL AT THIS NURSE STATING THAT SHE WASNT EVERY TOLD THAT, THIS NURSE STATING UPON ENTERING THE ROOM PREVIOUSLY I WENT OVER THIS PAPERWORK WITH YOU, PATIENT WAS RAISING VOICE AT THIS NURSE, GRABBED CLIPBOARD FROM THIS NURSE, READ IT OVER AND SIGNED. AT THIS TIME, PATIENT TURNED HER PHONE OVER TO SHOW THIS NURSE THAT SHE HAD HAD SOMEONE ON THE PHONE LISTENING TO CONVERSATION WITHOUT THIS NURSES KNOWLEDGE. THIS NURSE STATED THAT SHE WOULD BE LEAVING ROOM NOW, DUE TO BEING RECORDED/LISTENED TO WITHOUT HER KNOWLEDGE. APPROXIMATELY 10 MINUTES LATER PATIENT REQUESTED ASSISTANCE IN ROOM THAT SHE WANTED HER MEDICAL RECORDS. THIS NURSE ENTERED PATIENTS ROOM WITH FORM FOR MEDICAL RECORDS SO THAT SHE COULD REQUEST ALL RECORDS APPROPRIATELY. THIS NURSE STATED I WOULD NOT BE TALKING AT THIS TIME. PATIENT THEN SHOWED PHONE ET STATED I HAVE NO ONE ON THE PHONE AND IM NOT RECORDING. THIS NURSE THANKED HER FOR SHOWING THAT. PATIENT THEN REQUESTED PERSONAL BELONGINGS BAG STATING "CAN YOU EVEN GET THAT FOR ME", THIS NURSE RESPONDED WITH YES, AND GRABBED PATIENT 2 PERSONAL BELONGING BAGS. THIS NURSE ASKED PATIENT IS THERE ANYTHING ELSE SHE COULD HELP HER WITH. PATIENT LOOKED AT NURSE ET STATED "I GUESS NOT".
[2020-03-26 10:17] LABS: ALBUMIN 3.4 GM/DL (3.2-4.5); BILIRUBIN,DIRECT 0.1 MG/DL (0.0-0.3); BILIRUBIN,INDIRECT 0.1 MG/DL; BILIRUBIN,TOTAL 0.2 MG/DL (0.1-1.0); TOTAL PROTEIN 6.7 GM/DL (6.4-8.2)
--- NOTE | 2020-03-26 12:53 | Discharge Summary ---
Diagnosis/Chief Complaint Date of Admission Mar 25, 2020 at 10:22 Date of Discharge Mar 26, 2020 at 12:24 Admission Diagnosis Anaphylaxis Primary Care No,Local Physician Discharge Diagnosis (1) Anaphylaxis Status: Acute (2) CKD (chronic kidney disease) (3) Insulin dependent diabetes mellitus Status: Chronic (4) Essential (primary) hypertension Status: Chronic Discharge Summary Discharge Physical Exam Allergies: Coded Allergies: acetaminophen (Verified Allergy, Unknown, 03/25/20) hydrocodone (Verified Allergy, Unknown, 03/25/20) sulfamethoxazole (Verified Allergy, Unknown, 03/25/20) trimethoprim (Verified Allergy, Unknown, 03/25/20) Uncoded Allergies: IVP DYE (Allergy, Unknown, 03/25/20) Vitals & I&Os Vital Signs Date Time Temp Pulse Resp B/P (MAP) Pulse Ox O2 Delivery O2 Flow Rate FiO2 03/26/20 08:45 173/96 (121) Nasal Cannula 2.00 03/26/20 08:15 36.4 03/26/20 06:45 82 03/26/20 06:22 20 99 03/25/20 08:47 97 General Appearance: No Apparent Distress Neurologic/Psychiatric: Alert, Oriented x3 Hospital Course Pt was admitted due to idiopathic anaphylaxis. She was given Epinephrine, Solumedrol, and benadryl in the ER and transfer here for observation. She was monitored in the ER and did well. She was started on a oral prednisone and took one dose but then refused to keep taking it. She has known CKD Stage V, not on dialysis, and her labs were trending. Creatinine and GFR were stable at her baseline. Her potassium was elevated at 6.0 which was treated aggressively with Kayexalate, lasix, bicarb, and calcium gluconate. Repeat labs were ordered to ensure improvement. Unfortunately prior to this being done she elected to leave [facility]. A paperwork was signed and risks were discussed with patient by the nurse. Labs (last 24 hrs) Laboratory Tests 03/25/20 17:09: Glucometer 447*H 03/25/20 20:26: Glucometer 429*H 03/26/20 03:04: White Blood Count 15.9H, Red Blood Count 3.53L, Hemoglobin 10.8L, Hematocrit 33L , Mean Corpuscular Volume 93, Mean Corpuscular Hemoglobin 31, Mean Corpuscular Hemoglobin Concent 33, Red Cell Distribution Width 13.8, Platelet Count 202, Mean Platelet Volume 10.6H, Neutrophils (%) (Auto) 94H, Lymphocytes (%) (Auto) 5L, Monocytes (%) (Auto) 1, Eosinophils (%) (Auto) 0, Basophils (%) (Auto) 0, Neutrophils # (Auto) 15.0H, Lymphocytes # (Auto) 0.7L, Monocytes # (Auto) 0.2, Eosinophils # (Auto) 0.0, Basophils # (Auto) 0.0, Neutrophils % (Manual) 83, Lymphocytes % (Manual) 3, Monocytes % (Manual) 3, Band Neutrophils 9, Reactive Lymphocytes 2, Blood Morphology Comment NORMAL, Erythrocyte Sedimentation Rate 46H, Sodium Level 133L, Potassium Level 6.0H, Chloride Level 109H, Carbon Dioxide Level 13L, Anion Gap 11, Blood Urea Nitrogen 74H, Creatinine 4.63H, Estimat Glomerular Filtration Rate 10, BUN/Creatinine Ratio 16, Glucose Level 230H, Calcium Level 8.3L, Corrected Calcium 8.8, Total Bilirubin 0.2, Direct Bilirubin 0.1, Indirect Bilirubin 0.1, Aspartate Amino Transf (AST/SGOT) 8, Alanine Aminotransferase (ALT/SGPT) 9, Alkaline Phosphatase 62, C-Reactive Protein High Sensitivity 2.32H, Total Protein 6.7, Albumin 3.4 03/26/20 06:21: Glucometer 240H Patient resulted labs reviewed. Pending Labs Laboratory Tests 03/26/20 06:21: Glucometer 240 Imaging: Reviewed Imaging Report Discussion & Recommendations Discharge Planning: <30 minutes discharge planning Discharge Home Medications: Active Scripts Active Aldactone (Spironolactone) 25 Mg Tablet 25 Mg PO DAILY [Baking Soda] 1 Tsp PO DAILY Trulicity (Dulaglutide) 1.5 Mg/0.5 Ml Pen.injctr 1.5 Mg SQ WEEK Tums (Calcium Carbonate) 300 Mg Tab.chew 750 Mg PO DAILY Lisinopril 40 Mg Tablet 40 Mg PO DAILY Carvedilol 6.25 Mg Tablet 6.25 Mg PO DAILY Instructions to patient/family Please see electronic discharge instructions given to patient. Clinical Quality Measures DVT/VTE Risk/Contraindication: Risk Factor Score Per Nursin RFS Level Per Nursing on Admit: 2=Moderate Problem Qualifiers (1) Anaphylaxis: Encounter type: initial encounter Qualified Codes: T78.2XXA - Anaphylactic shock, unspecified, initial encounter (2) CKD (chronic kidney disease): Chronic kidney disease stage: stage 5, not on chronic dialysis Qualified Codes: N18.5 - Chronic kidney disease, stage 5 DAYRON VITALE MD Mar 26, 2020 12:53
== END 2020-03-26 12:24 | disposition left against medical advice (07) ==
LOC: ER FS 08:21 → ICU 10:22
PROVIDERS: ADMIT Family Medicine; ATTEND Family Medicine
DX: T78.2XXA Anaphylactic shock, unspecified, initial encounter (principal); E11.22 Type 2 diabetes mellitus with diabetic chronic kidney disease; I12.0 Hypertensive chronic kidney disease with stage 5 chronic kidney disease or end stage renal disease; N18.5 Chronic kidney disease, stage 5; E87.5 Hyperkalemia; Z88.6 Allergy status to analgesic agent; Z88.5 Allergy status to narcotic agent; Z88.2 Allergy status to sulfonamides; Z88.1 Allergy status to other antibiotic agents; Z91.041 Radiographic dye allergy status; Z79.84 Long term (current) use of oral hypoglycemic drugs; Z90.710 Acquired absence of both cervix and uterus
CPT/HCPCS: 36415; 71045; 80053; 80076; 82962; 83690; 83735; 84484; 85007; 85025; 85027; 85652; 86141; 93005

== ENCOUNTER → 2020-06-05 | Outpatient (CLI) | payer OTHER ==
[~2020-06-05] MED LIST: BAKING SODA PO; CALC300T4 PO; CARV6.252 PO; DULA1.5P2 SQ; LISI40TA PO; SPIR25TA PO
--- NOTE | 2020-06-05 15:42 | Diagnostic Imaging Report ---
INDICATION: Right hip pain. TIME OF EXAM 2:46 PM Two views right hip were obtained. Femoral acetabular alignment is normal. Joint space is fairly well maintained. Femoral head and neck are intact. No fractures are seen. Right-sided rami are intact. IMPRESSION: No acute bony abnormality is detected. Dictated by: Dictated on workstation # [id number]
== END ==
LOC: RAD FS 14:38
PROVIDERS: ATTEND Neurological Surgery
DX: M25.551 Pain in right hip (principal)
CPT/HCPCS: 73502

== ENCOUNTER 2021-05-20 22:41 | Emergency (ER) | payer OTHER ==
[~2021-05-20 22:41] MED LIST changes: -LISI40TA PO; +LISI40TA9 PO
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
[2021-05-20] MEDS ORDERED: TRM50T PO (23:26)
[2021-05-20 23:39] VITALS: BP 159/87
--- NOTE | 2021-05-21 07:25 | Diagnostic Imaging Report ---
HISTORY: Right shoulder pain after injury. COMPARISON: None TECHNIQUE: 3 views of the right shoulder FINDINGS: No acute fracture or dislocation is seen in the right shoulder. There is a large subacromial spur. There are moderate degenerative changes in the acromioclavicular joint. There is mild degenerative change in the glenohumeral joint. Alignment appears normal. IMPRESSION: 1. Degenerative changes in the right shoulder including a large subacromial spur. No acute fracture is seen. Dictated by: Dictated on workstation # [id number]
--- NOTE | 2021-05-21 07:26 | Diagnostic Imaging Report ---
HISTORY: Right shoulder and arm pain after injury. COMPARISON: None TECHNIQUE: 2 views of the right humerus FINDINGS: There are degenerative changes and subacromial spurring at the right shoulder which is described in a separate report. No acute fracture seen in the right humerus. Alignment appears normal. Multiple surgical clips are seen in the upper arm. There are degenerative changes of the right elbow. There is soft tissue swelling posteriorly. No unexpected radiopaque foreign body is seen. IMPRESSION: 1. Soft tissue swelling posterior to the right humerus with no acute fracture seen. 2. Degenerative changes in the right shoulder and right elbow. Dictated by: Dictated on workstation # [id number]
== END 2021-05-20 23:39 | disposition home or self-care (01) ==
LOC: EDUNIT# 22:41 → ER FS 22:44
DX: S49.91XA Unspecified injury of right shoulder and upper arm, initial encounter (principal); I10 Essential (primary) hypertension; E11.9 Type 2 diabetes mellitus without complications; Z88.5 Allergy status to narcotic agent; W22.8XXA Striking against or struck by other objects, initial encounter
CPT/HCPCS: 73030; 73060; 99283; A4565

== ENCOUNTER 2023-01-08 22:38 | Emergency (ER) | payer OTHER ==
[~2023-01-08] VITALS: Ht 170 cm; Wt 99.7 kg
[~2023-01-08 22:38] MED LIST changes: +TRM50T PO
[2023-01-08 23:08] LABS: BASOPHILS % (AUTO) 1 % (0-10); EOSINOPHILS # (AUTO) 0.2 10^3/uL (0.0-0.3); EOSINOPHILS % (AUTO) 3 % (0-10); HEMATOCRIT 33 % (35-52); HEMOGLOBIN 11.1 g/dL (11.5-16.0); LYMPHOCYTES % (AUTO) 34 % (12-44); MEAN CORPUSCULAR HEMOGLOBIN 32 pg (25-34); MEAN CORPUSCULAR HGB CONC 34 g/dL (32-36); MEAN CORPUSCULAR VOLUME 94 fL (80-99); MEAN PLATELET VOLUME 11.6 fL (9.0-12.2); MONOCYTES # (AUTO) 0.6 10^3/uL (0.0-1.0); MONOCYTES % (AUTO) 10 % (0-12); NEUTROPHILS % (AUTO) 52 % (42-75); PLATELET COUNT 170 10^3/uL (130-400); WHITE BLOOD COUNT 5.9 10^3/uL (4.3-11.0)
[2023-01-08 23:42] LABS: CALCIUM 9.9 MG/DL (8.5-10.1); CREATININE SERUM 7.23 MG/DL (0.60-1.30); MAGNESIUM 2.3 MG/DL (1.6-2.4); POTASSIUM 4.1 MMOL/L (3.6-5.0)
[2023-01-08 23:43] LABS: BILIRUBIN,TOTAL 0.3 MG/DL (0.1-1.0); TOTAL PROTEIN 7.1 GM/DL (6.4-8.2)
--- NOTE | 2023-01-09 00:14 | ED Neurological Problem ---
General Chief Complaint: Neurological Problems Stated Complaint: VOMITING Nursing Triage Note: PATIENT ARRIVED VIA EMS WITH COMPLAINT OF FACIAL NUMBNESS, ARM NUMBNESS, SLURRED WORDS, AND LETHARGY. PATIENT STATED OCCURRED 20 MIN BEFORE EMS ARRIVED. EMS REPORTS PATIENT VOMITTED TWICE IN ROUTE, STATES ADMINISTERED ZOFRAN. 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 Patient is also nausea and vomiting x2. Symptom onset was 20 minutes prior to ED arrival. Zofran given by EMS. No blurred vision, facial droop, difficulty swallowing, focal extremity weakness or loss of sensation. Blood sugar was 121 Timing/Duration: 1 hour Severity: moderate Associated Symptoms: other Allergies and Home Medications Allergies Coded Allergies: acetaminophen (Verified Allergy, Unknown, 03/25/20) hydrocodone (Verified Allergy, Unknown, 03/25/20) sulfamethoxazole (Verified Allergy, Unknown, 03/25/20) trimethoprim (Verified Allergy, Unknown, 03/25/20) Uncoded Allergies: IVP DYE (Allergy, Unknown, 03/25/20) Patient Home Medication List Home Medication List Reviewed: Yes Calcium Carbonate (Tums) 300 Mg Tab.chew, 750 MG PO DAILY Prescribed by: BALTA HENRIQUEZ on 03/25/201717 Carvedilol (Carvedilol) 6.25 Mg Tablet, 6.25 MG PO DAILY Prescribed by: BALTA HENRIQUEZ on 03/25/201717 Dulaglutide (Trulicity) 1.5 Mg/0.5 Ml Pen.injctr, 1.5 MG SQ WEEK Prescribed by: BALTA HENRIQUEZ on 03/25/201717 Lisinopril (Lisinopril) 40 Mg Tablet, 40 MG PO DAILY Prescribed by: BALTA HENRIQUEZ on 03/25/201717 Spironolactone (Aldactone) 25 Mg Tablet, 25 MG PO DAILY Prescribed by: BALTA HENRIQUEZ on 03/25/201717 Tramadol HCl (Tramadol HCl) 50 Mg Tablet, 50 MG PO Q4H PRN for PAIN-MODERATE (5- 7) Prescribed by: AJ TIRADO on 05/20/21 2326 [Baking Soda] , 1 TSP PO DAILY Prescribed by: BALTA HENRIQUEZ on 03/25/20 1718 Review of Systems Review of Systems Constitutional: see HPI Eyes: See HPI Ears, Nose, Mouth, Throat: see HPI Respiratory: see HPI Cardiovascular: see HPI Gastrointestinal: see HPI Genitourinary: see HPI : No Musculoskeletal: see HPI Skin: see HPI Psychiatric/Neurological: See HPI Endocrine: See HPI Hematologic/Lymphatic: See HPI All Other Systems Reviewed Negative Unless Noted: No Past Jpftgdv-Qkdjch-Mdemyw Hx Patient Social History Tobacco Use?: No Seasonal Allergies Seasonal Allergies: No Past Medical History Surgery/Hospitalization HX: 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 oz. kg; 34.00 BMI Method: General Appearance: WD/WN, no apparent distress HEENT: normal ENT inspection Neck: non-tender, full range of motion, supple Respiratory: lungs clear, normal breath sounds Cardiovascular: normal peripheral pulses, regular rate, rhythm Gastrointestinal: non tender, soft Back: normal inspection Extremities: normal range of motion, non-tender, normal inspection Neurologic/Psychiatric: alert, normal mood/affect, oriented x 3 Crainal Nerves: normal speech, PERRL Coordination/Gait: normal finger to nose Motor/Sensory: no motor deficit, no sensory deficit, no pronator drift Skin: normal color Lymphatic: no adenopathy Stroke NIH Stroke Scale Assessment Level of Consciousness: 0=Alert (0), Level of Consciousness-Questions: 0=Answers both month/age (0), LOC Commands: 0=Performs both tasks (0), Visual Crowley: 0=No visual loss (0), Facial Movement (Facial Paresis): 0=Normal symmetrical mnt (0), Motor Function-Arms Right: 0=No drift (0), Motor Function-Arms Left: 0=No drift (0), Motor Function-Legs Right: 0=No drift (0), Motor Function-Legs Left: 0=No drift (0), Limb Ataxia: 0=Absent (0), Sensory: 0=Normal:no loss (0), Best Language: 0=No aphasia (0), Dysarthria: 1=Mild to moderate loss (1), Extinction & Inattention: 0=No abnormality (0), Total: 1 Focused Exam Sepsis Stage: Ruled Out Progress/Results/Core Measures Results/Orders Lab Results Laboratory Tests Test 01/08/23 22:50 01/08/23 23:29 Range/Units White Blood Count 5.9 4.3-11.0 10^3/uL Red Blood Count 3.50 L 3.80-5.11 10^6/uL Hemoglobin 11.1 L 11.5-16.0 g/dL Hematocrit 33 L 35-52 % Mean Corpuscular Volume 94 80-99 fL Mean Corpuscular Hemoglobin 32 25-34 pg Mean Corpuscular Hemoglobin Concent 34 32-36 g/dL Red Cell Distribution Width 12.5 10.0-14.5 % Platelet Count 170 130-400 10^3/uL Mean Platelet Volume 11.6 9.0-12.2 fL Immature Granulocyte % (Auto) 0 % Neutrophils (%) (Auto) 52 42-75 % Lymphocytes (%) (Auto) 34 12-44 % Monocytes (%) (Auto) 10 0-12 % Eosinophils (%) (Auto) 3 0-10 % Basophils (%) (Auto) 1 0-10 % Neutrophils # (Auto) 3.0 1.8-7.8 10^3/uL Lymphocytes # (Auto) 2.0 1.0-4.0 10^3/uL Monocytes # (Auto) 0.6 0.0-1.0 10^3/uL Eosinophils # (Auto) 0.2 0.0-0.3 10^3/uL Basophils # (Auto) 0.0 0.0-0.1 10^3/uL Immature Granulocyte # (Auto) 0.0 0.0-0.1 10^3/uL Sodium Level 144 135-145 MMOL/L Potassium Level 4.1 3.6-5.0 MMOL/L Chloride Level 101 98-107 MMOL/L Carbon Dioxide Level 29 21-32 MMOL/L Anion Gap 14 5-14 MMOL/L Blood Urea Nitrogen 69 H 7-18 MG/DL Creatinine 7.23 H 0.60-1.30 MG/DL Estimat Glomerular Filtration Rate 6 BUN/Creatinine Ratio 10 Glucose Level 146 H 70-105 MG/DL Calcium Level 9.9 8.5-10.1 MG/DL Corrected Calcium 9.9 8.5-10.1 MG/DL Magnesium Level 2.3 1.6-2.4 MG/DL Total Bilirubin 0.3 0.1-1.0 MG/DL Aspartate Amino Transf (AST/SGOT) 21 5-34 U/L Alanine Aminotransferase (ALT/SGPT) 24 0-55 U/L Alkaline Phosphatase 88 40-136 U/L Total Protein 7.1 6.4-8.2 GM/DL Albumin 4.0 3.2-4.5 GM/DL Urine Color PALE YELLOW Urine Clarity CLEAR Urine pH 8.5 5-9 Urine Specific [place] 1.020 1.016-1.022 Urine Protein 2+ H NEGATIVE Urine Glucose (UA) 1+ H NEGATIVE Urine Ketones NEGATIVE NEGATIVE Urine Nitrite NEGATIVE NEGATIVE Urine Bilirubin NEGATIVE NEGATIVE Urine Urobilinogen 0.2 < = 1.0 MG/DL Urine Leukocyte Esterase NEGATIVE NEGATIVE Urine RBC (Auto) TRACE-I H NEGATIVE Urine RBC 0-2 /HPF Urine WBC RARE /HPF Urine Squamous Epithelial Cells 0-2 /HPF Urine Crystals NONE /LPF Urine Bacteria NEGATIVE /HPF Urine Casts NONE /LPF Urine Mucus NEGATIVE /LPF Urine Culture Indicated NO Urine Opiates Screen NEGATIVE NEGATIVE Urine Oxycodone Screen NEGATIVE NEGATIVE Urine Methadone Screen NEGATIVE NEGATIVE Urine Propoxyphene Screen NEGATIVE NEGATIVE Urine Barbiturates Screen NEGATIVE NEGATIVE Ur Tricyclic Antidepressants Screen NEGATIVE NEGATIVE Urine Phencyclidine Screen NEGATIVE NEGATIVE Urine Amphetamines Screen NEGATIVE NEGATIVE Urine Methamphetamines Screen NEGATIVE NEGATIVE Urine Benzodiazepines Screen NEGATIVE NEGATIVE Urine Cocaine Screen NEGATIVE NEGATIVE Urine Cannabinoids Screen NEGATIVE NEGATIVE My Orders Orders - AJ TIRADO DO Cbc With Automated Diff (01/08/23 22:51) Comprehensive Metabolic Panel (01/08/23 22:51) Ekg Tracing (01/08/23 22:51) Thyroid Stimulating Hormone (01/08/23 22:51) Magnesium (01/08/23 22:51) Ct Head Wo-R/O Stroke (01/08/23 22:51) Drug Screen Stat (Urine) (01/09/23 00:06) Ua Culture If Indicated (01/09/23 00:06) Vital Signs/I&O 01/08/23 22:38 Pulse 74 Resp 14 B/P (MAP) 174/133 (147) Pulse Ox 95 O2 Delivery Room Air Blood Pressure Mean: 147 Departure Communication (Admissions) CT head: No acute findings Patient with headache, nausea vomiting with nonspecific symmetric neurologic symptoms chronic renal failure resolved while in the emergency department. CT head nonacute, symptoms were removed in the emergency department without treatment. Recommendations are watchful waiting's abortive care and PCP follow- up. Return precautions reviewed. Impression Primary Impression: Head ache Additional Impressions: Nausea & vomiting Distal paresthesia Chronic kidney disease Disposition: HOME, SELF-CARE Condition: Stable Departure-Patient Inst. Decision time for Depature: 01:09 Referrals: NO,LOCAL PHYSICIAN (PCP/Family) Primary Care Physician Patient Instructions: Headache, Adult ED, Nausea and Vomiting, Adult (DC), Chronic Kidney Disease Add. Discharge Instructions: You were evaluated in the emergency department for headache, nausea vomiting and paresthesias. CT imaging of the head, lab and imaging were performed and are nondiagnostic. You are noted to have chronic kidney disease. The exact cause of your symptoms or not determined. Please go home and rest, take nausea medication as directed and follow-up with your applications developer in the next 3 to 5 days for reevaluation. Return to the ED if new or worsening symptoms. All discharge instructions reviewed with patient and/or family. Voiced understanding. Scripts Ondansetron (Ondansetron Odt) 4 Mg Tab.rapdis 4 MG SL Q4H PRN for NAUSEA/VOMITING, #10 TAB Prov: AJ TIRADO DO 01/09/23 AJ TIRADO DO Jan 09, 2023 00:14
[2023-01-09 00:18] LABS: BILIRUBIN,URINE NEGATIVE (NEGATIVE); CLARITY,URINE CLEAR; GLUCOSE, URINE (UA) 1+ (NEGATIVE); KETONES,URINE NEGATIVE (NEGATIVE); LEUKOCYTE ESTERASE ,URINE NEGATIVE (NEGATIVE); NITRITE,URINE NEGATIVE (NEGATIVE); PH,URINE 8.5 (5-9); PROTEIN,URINE 2+ (NEGATIVE)
[2023-01-09 00:24] LABS: COLOR,URINE PALE YELLOW
[2023-01-09 00:25] LABS: BACTERIA,URINE NEGATIVE /HPF; RBC,URINE 0-2 /HPF; SQUAMOUS EPITHELIAL CELL,UR 0-2 /HPF; WBC,URINE RARE /HPF
[2023-01-09 00:29] LABS: AMPHETAMINE SCREEN, URINE NEGATIVE (NEGATIVE); BARBITURATE SCREEN URINE NEGATIVE (NEGATIVE); BENZODIAZEPINES SCREEN URINE NEGATIVE (NEGATIVE); CANNABINOID SCREEN, URINE NEGATIVE (NEGATIVE); COCAINE SCREEN URINE NEGATIVE (NEGATIVE); METHADONE STAT NEGATIVE (NEGATIVE); OPIATE SCREEN URINE NEGATIVE (NEGATIVE); OXYCODONE STAT NEGATIVE (NEGATIVE); PROPOXYPHENE STAT NEGATIVE (NEGATIVE); TRICYCLIC ANTIDEPRESSANTS SCRE NEGATIVE (NEGATIVE)
[2023-01-09] MEDS ORDERED: ONDA4TAB11 SL (01:14)
[2023-01-09 01:48] VITALS: BP 95/64
--- NOTE | 2023-01-09 08:07 | Diagnostic Imaging Report ---
EXAMINATION: CT head without contrast. TECHNIQUE: Multiple contiguous axial images were obtained through the brain without the use of intravenous contrast. All CT scans use one or more of the following dose optimizing techniques: automated exposure control, MA and/or KvP adjustment based on patient size and exam type or iterative reconstruction. HISTORY: Altered mental status. Vomiting. COMPARISON: None available. FINDINGS: No large acute territorial ischemia, mass, or hemorrhage. No midline shift or mass effect. Calcifications are noted within the benita. The ventricles, cortical sulci, and basilar cisterns are patent and unremarkable. The orbits are normal. Paranasal sinuses are normal. Mastoid air cells are clear. No soft tissue abnormality is seen. No osseus lesions or fractures are seen. IMPRESSION: 1. No large acute territorial ischemia, mass, or hemorrhage. Agree with overnight report. Dictated by: Dictated on workstation # [id number]
== END 2023-01-09 01:48 | disposition home or self-care (01) ==
LOC: ER FS 22:40 → EDUNIT# 22:45 → ER FS 01-09 01:48
DX: R51.9 Headache, unspecified (principal); R11.2 Nausea with vomiting, unspecified; R20.2 Paresthesia of skin; I12.9 Hypertensive chronic kidney disease with stage 1 through stage 4 chronic kidney disease, or unspecified chronic kidney disease; E11.22 Type 2 diabetes mellitus with diabetic chronic kidney disease; E11.65 Type 2 diabetes mellitus with hyperglycemia; N18.9 Chronic kidney disease, unspecified; Z79.4 Long term (current) use of insulin
CPT/HCPCS: 36415; 70450; 80053; 80306; 81000; 83735; 84443; 85025; 93041

== ENCOUNTER 2023-09-07 06:18 | Emergency (ER) | payer BC, OTHER ==
[~2023-09-07] VITALS: Ht 167.7 cm; Wt 113.5 kg
[~2023-09-07 06:18] MED LIST changes: +ONDA4TAB11 SL
--- NOTE | 2023-09-07 06:29 | ED Dyspnea ---
General Stated Complaint: RESPIRATORY DISTRESS History of Present Illness Date Seen by Provider: Sep 07, 2023 Time Seen by Provider: 06:20 Initial Comments 52 yr F with PMH of Renal Failure/ Anemia of chronic disease/ HTN/ p-A-Fib on Eliquis, with a loop recorder placed last month, is brought here via EMS with c/o sudden onset of SOB which woke her up from sleep. Denies fever and chills, cough, recent illness, diarrhea, chest pain. No known sick contacts. Pt does not have a history of COPD or Asthma. Pt is supposed to begin dialysis sometime soon but has not been scheduled yet. (VILLA WINSTON MD) Allergies and Home Medications Allergies Coded Allergies: acetaminophen (Verified Allergy, Unknown, 03/25/20) hydrocodone (Verified Allergy, Unknown, 03/25/20) sulfamethoxazole (Verified Allergy, Unknown, 03/25/20) trimethoprim (Verified Allergy, Unknown, 03/25/20) Uncoded Allergies: IVP DYE (Allergy, Unknown, 03/25/20) Patient Home Medication List Home Medication List Reviewed: Yes (VILLA WINSTON MD) Amlodipine Besylate (Amlodipine Besylate) 10 Mg Tablet, 10 MG PO, (Reported) Entered as Reported by: JAYESH WARREN on 09/07/23727 Last Action: Last Taken Edited Apixaban (Eliquis) 2.5 Mg Tablet, 2.5 MG PO BID, (Reported) Entered as Reported by: JAYESH WARREN on 09/07/23727 Last Action: New Order Calcium Carbonate (Tums) 300 Mg Tab.chew, 750 MG PO DAILY Prescribed by: BALTA HENRIQUEZ on 03/25/201717 Carvedilol (Carvedilol) 6.25 Mg Tablet, 6.25 MG PO DAILY Prescribed by: BALTA HENRIQUEZ on 03/25/201717 Dulaglutide (Trulicity) 1.5 Mg/0.5 Ml Pen.injctr, 1.5 MG SQ WEEK Prescribed by: BALTA HENRIQUEZ on 03/25/201717 Lisinopril (Lisinopril) 40 Mg Tablet, 40 MG PO DAILY Prescribed by: BALTA HENRIQUEZ on 03/25/201717 Ondansetron (Ondansetron Odt) 4 Mg Tab.rapdis, 4 MG SL Q4H PRN for NAUSEA/VOMITING Prescribed by: AJ TIRADO on 01/09/23 0114 Rosuvastatin Calcium (Rosuvastatin Calcium) 20 Mg Tablet, 20 MG PO DAILY, (Reported) Entered as Reported by: JAYESH WARREN on 09/07/23 0728 Last Action: New Order Spironolactone (Aldactone) 25 Mg Tablet, 25 MG PO DAILY Prescribed by: BALTA HENRIQUEZ on 03/25/20 171 Tramadol HCl (Tramadol HCl) 50 Mg Tablet, 50 MG PO Q4H PRN for PAIN-MODERATE (5- 7) Prescribed by: AJ TIRADO on 05/20/21 2326 [Baking Soda] , 1 TSP PO DAILY Prescribed by: BALTA HENRIQUEZ on 03/25/20 171 Review of Systems Review of Systems Constitutional: no symptoms reported Respiratory: short of breath (VILLA WINSTON MD) Past Bvfropu-Fudpcz-Uyvvwz Hx Seasonal Allergies Seasonal Allergies: No (VILLA WINSTON MD) Past Medical History Surgery/Hospitalization HX: 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 oz. kg; 34.00 BMI Method: General Appearance: Anxious, Mild Distress, Obese HEENT: PERRL/EOMI, Normal ENT Inspection Neck: Full Range of Motion, Normal Inspection Respiratory: Chest Non Tender, Lungs Clear, Normal Breath Sounds, No Accessory Muscle Use Cardiovascular: No Edema, Irregularly Irregular, Tachycardia Gastrointestinal: Normal Bowel Sounds, Non Tender, Soft Extremity: Normal Range of Motion Neurologic/Psychiatric: Alert, Oriented x3, No Motor/Sensory Deficits Skin: Normal Color (VILLA WINSTON MD) Focused Exam Lactate Level 09/07/23 06:35: Lactic Acid Level 0.93 (LUCINDA ESTRADA DO) Lactic Acid Level Laboratory Tests Test 09/07/23 06:35 Lactic Acid Level 0.93 MMOL/L (0.50-2.00) (LUCINDA ESTRADA DO) Progress/Results/Core Measures Results/Orders Lab Results Laboratory Tests Test 09/07/23 06:35 Range/Units White Blood Count 7.5 4.3-11.0 10^3/uL Red Blood Count 2.66 L 3.80-5.11 10^6/uL Hemoglobin 8.5 L 11.5-16.0 g/dL Hematocrit 27 L 35-52 % Mean Corpuscular Volume 103 H 80-99 fL Mean Corpuscular Hemoglobin 32 25-34 pg Mean Corpuscular Hemoglobin Concent 31 L 32-36 g/dL Red Cell Distribution Width 12.7 10.0-14.5 % Platelet Count 151 130-400 10^3/uL Mean Platelet Volume 10.8 9.0-12.2 fL Immature Granulocyte % (Auto) 0 % Neutrophils (%) (Auto) 78 H 42-75 % Lymphocytes (%) (Auto) 13 12-44 % Monocytes (%) (Auto) 7 0-12 % Eosinophils (%) (Auto) 2 0-10 % Basophils (%) (Auto) 0 0-10 % Neutrophils # (Auto) 5.8 1.8-7.8 10^3/uL Lymphocytes # (Auto) 1.0 1.0-4.0 10^3/uL Monocytes # (Auto) 0.5 0.0-1.0 10^3/uL Eosinophils # (Auto) 0.1 0.0-0.3 10^3/uL Basophils # (Auto) 0.0 0.0-0.1 10^3/uL Immature Granulocyte # (Auto) 0.0 0.0-0.1 10^3/uL Prothrombin Time 14.1 12.2-14.7 SEC INR Comment 1.1 0.8-1.4 Activated Partial Thromboplast Time 35 24-35 SEC D-Dimer 0.84 H 0.00-0.49 UG/ML Sodium Level 148 H 135-145 MMOL/L Potassium Level 4.6 3.6-5.0 MMOL/L Chloride Level 105 98-107 MMOL/L Carbon Dioxide Level 26 21-32 MMOL/L Anion Gap 17 H 5-14 MMOL/L Blood Urea Nitrogen 81 H 7-18 MG/DL Creatinine 10.10 H 0.60-1.30 MG/DL Estimat Glomerular Filtration Rate 4 BUN/Creatinine Ratio 8 Glucose Level 136 H 70-105 MG/DL Lactic Acid Level 0.93 0.50-2.00 MMOL/L Calcium Level 8.6 8.5-10.1 MG/DL Corrected Calcium 9.0 8.5-10.1 MG/DL Total Bilirubin 0.2 0.1-1.0 MG/DL Aspartate Amino Transf (AST/SGOT) 17 5-34 U/L Alanine Aminotransferase (ALT/SGPT) 35 0-55 U/L Alkaline Phosphatase 106 40-136 U/L Troponin I < 0.30 <0.30 NG/ML Pro-B-Type Natriuretic Peptide 53465.0 H <125.0 PG/ML Total Protein 6.6 6.4-8.2 GM/DL Albumin 3.5 3.2-4.5 GM/DL Influenza Type A (RT-PCR) Not Detected Not Detecte Influenza Type B (RT-PCR) Not Detected Not Detecte SARS-CoV-2 RNA (RT-PCR) Not Detected Not Detecte (LUCINDA ESTRADA DO) My Orders Orders - LUCINDA ESTRADA DO Furosemide Injection (Furosemide Injec (09/07/23 07:45) (LUCINDA ESTRADA DO) Medications Given in ED Current Medications Medications Dose Ordered Sig/Damian Route Start Time Stop Time Status Last Admin Dose Admin Albuterol/ Ipratropium 3 ml ONCE ONCE INH 09/07/23 06:45 09/07/23 06:46 DC 09/07/23 06:40 3 ML Furosemide 40 mg ONCE ONCE IVP 09/07/23 07:45 09/07/23 07:46 DC 09/07/23 07:43 40 MG (LUCINDA ESTRADA DO) Vital Signs/I&O 09/07/23 09/07/23 09/07/23 09/07/23 06:20 06:20 06:56 06:57 Temp 36.6 Pulse 125 131 130 Resp 28 B/P (MAP) 168/104 (125) 177/142 177/142 Pulse Ox 92 O2 Delivery Room Air Room Air (LUCINDA ESTRADA DO) Progress Progress Note : Progress Note 1. ACUTE RESPIRATORY DISTRESS: - CXR: - Labs sent - Duo Neb x 1/ Solumedrol 125 mg iv/ O2 via NC , 2L for comfort. Pt feels better with this. - Pt's O2 sat has been 92%-96% on room air the whole time she has been here - WiIll sign out to day physician to follow up labs and imaging 2. A-FIB in RVR: - EKG shows A-Fib in RVR - Cardizem bolus and drip started (VILLA WINSTON MD) Departure Communication (Admissions) I assumed care of the patient at 7:00 at shift change. I agree with the initial history and physical exam. I reviewed the chest x-ray independently which shows moderate pulmonary edema. Her heart rate and blood pressure have improved with Cardizem, overall heart rate averaging between 901 20 and blood pressure is now in the 456938 systolic range. She does have hypernatremia with a sodium of 148. Her baseline creatinine appears to be about 7 and is 10.10 today. Her GFR is 3. She still making significant amounts of urine smoke given her 40 mg of IV Lasix. Off going provider had given her a DuoNeb treatment, 125 mg of Solu- Medrol and she is again on a Cardizem drip at 5 currently. I spoken with heat transfer technician at [facility] and impending a callback for accepting physician. The patient is resting comfortably in the bed at this time. Her BNP is significantly elevated at 28,000 she has no leukocytosis but she does have chronic anemia with a stable hemoglobin at 8.5. Her EKG is nonischemic showing A-fib with RVR. Her COVID test is negative. 0800: Spoke to heat transfer technician at [facility].Dr Rosales accepts patient in transfer to [facility].Pending transportation at this time. (LUCINDA ESTRADA DO) Impression Primary Impression: Respiratory distress Additional Impressions: Atrial fibrillation with RVR Pulmonary edema Qualified Codes: J81.0 - Acute pulmonary edema Disposition: 02 XFER SHT-TRM HOSP Condition: Stable Departure-Patient Inst. Referrals: AZAEL EDWARDS STOPER (PCP/Family) Primary Care Physician VILLA WINSTON MD Sep 07, 2023 06:29 LUCINDA ESTRADA DO Sep 07, 2023 07:58
[2023-09-07] MEDS ORDERED: methylPREDNISolone INJ 125 MG VIAL IV STA (06:31)
[2023-09-07] MEDS ORDERED: RT-Ipratropium/Albuterol NEB 3 ML VIAL INH ONE (06:45)
[2023-09-07] MEDS ORDERED: dilTIAZem INJ 25 MG/5 ML VIAL IVP STA (06:49)
[2023-09-07] MEDS ORDERED: dilTIAZem DRIP PRE-MIX 125 ML IV STA (06:49)
[2023-09-07 07:07] LABS: BASOPHILS % (AUTO) 0 % (0-10); EOSINOPHILS # (AUTO) 0.1 10^3/uL (0.0-0.3); EOSINOPHILS % (AUTO) 2 % (0-10); HEMATOCRIT 27 % (35-52); HEMOGLOBIN 8.5 g/dL (11.5-16.0); LYMPHOCYTES % (AUTO) 13 % (12-44); MEAN CORPUSCULAR HEMOGLOBIN 32 pg (25-34); MEAN CORPUSCULAR HGB CONC 31 g/dL (32-36); MEAN CORPUSCULAR VOLUME 103 fL (80-99); MEAN PLATELET VOLUME 10.8 fL (9.0-12.2); MONOCYTES # (AUTO) 0.5 10^3/uL (0.0-1.0); MONOCYTES % (AUTO) 7 % (0-12); NEUTROPHILS # (AUTO) 5.8 10^3/uL (1.8-7.8); NEUTROPHILS % (AUTO) 78 % (42-75); PLATELET COUNT 151 10^3/uL (130-400); WHITE BLOOD COUNT 7.5 10^3/uL (4.3-11.0)
[2023-09-07 07:23] LABS: INR 1.1 (0.8-1.4); PROTHROMBIN TIME PATIENT 14.1 SEC (12.2-14.7)
[2023-09-07 07:26] LABS: ALANINE AMINOTRANSFERASE 35 U/L (0-55); ALBUMIN 3.5 GM/DL (3.2-4.5); ALKALINE PHOSPHATASE 106 U/L (40-136); BILIRUBIN,TOTAL 0.2 MG/DL (0.1-1.0); BUN/CREATININE RATIO 8; CALCIUM 8.6 MG/DL (8.5-10.1); CARBON DIOXIDE 26 MMOL/L (21-32); CHLORIDE 105 MMOL/L (98-107); GFR ESTIMATED 4; GLUCOSE 136 MG/DL (70-105); POTASSIUM 4.6 MMOL/L (3.6-5.0); SODIUM 148 MMOL/L (135-145); TOTAL PROTEIN 6.6 GM/DL (6.4-8.2)
[2023-09-07] MEDS ORDERED: ROSU20TA73 PO (07:28)
[2023-09-07] MEDS ORDERED: AMLO-251 PO (07:28)
[2023-09-07] MEDS ORDERED: APIX2.5T PO (07:28)
[2023-09-07 07:31] LABS: FIBRIN DEGRADATION PRODUCTS 0.84 UG/ML (0.00-0.49)
--- NOTE | 2023-09-07 07:34 | Diagnostic Imaging Report ---
EXAMINATION: Chest radiograph, portable AP view. DATE: 09/07/2023 7:28 AM INDICATION: 52-year-old female, shortness of breath. COMPARISON: March 25, 2020. FINDINGS: Heart size and mediastinal contours are unchanged. There is no identified pneumothorax. There is no large pleural effusion. There are mildly prominent pulmonary vascular markings. IMPRESSION: 1. Mildly prominent pulmonary vascular markings which may reflect interstitial edema, atypical infection, and/or pneumonitis. Dictated by: Dictated on workstation # [id number]
[2023-09-07] MEDS ORDERED: FUROSEMIDE INJECTION 40 MG/4 ML VIAL IVP ONE (07:45)
[2023-09-07 08:04] LABS: BILIRUBIN,URINE NEGATIVE (NEGATIVE); CLARITY,URINE CLEAR; COLOR,URINE YELLOW; GLUCOSE, URINE (UA) 1+ (NEGATIVE); KETONES,URINE NEGATIVE (NEGATIVE); LEUKOCYTE ESTERASE ,URINE NEGATIVE (NEGATIVE); NITRITE,URINE NEGATIVE (NEGATIVE); PH,URINE 8.5 (5-9); PROTEIN,URINE 3+ (NEGATIVE)
[2023-09-07 08:06] LABS: BACTERIA,URINE MODERATE /HPF; SQUAMOUS EPITHELIAL CELL,UR 25-50 /HPF
[2023-09-07 08:13] LABS: AMPHETAMINE SCREEN, URINE NEGATIVE (NEGATIVE); BARBITURATE SCREEN URINE NEGATIVE (NEGATIVE); CANNABINOID SCREEN, URINE NEGATIVE (NEGATIVE); COCAINE SCREEN URINE NEGATIVE (NEGATIVE); METHADONE STAT NEGATIVE (NEGATIVE); OPIATE SCREEN URINE NEGATIVE (NEGATIVE); OXYCODONE STAT NEGATIVE (NEGATIVE); PROPOXYPHENE STAT NEGATIVE (NEGATIVE); TRICYCLIC ANTIDEPRESSANTS SCRE NEGATIVE (NEGATIVE)
[2023-09-07 08:20] VITALS: BP 144/89
== END 2023-09-07 08:20 | disposition short-term general hospital (02) ==
LOC: EDUNIT# 06:18 → ER FS 06:19
DX: R06.03 Acute respiratory distress (principal); I48.91 Unspecified atrial fibrillation; J81.1 Chronic pulmonary edema; E11.9 Type 2 diabetes mellitus without complications; E66.9 Obesity, unspecified; Z68.34 Body mass index [BMI] 34.0-34.9, adult; Z20.822 Contact with and (suspected) exposure to COVID-19; Z28.310 Unvaccinated for COVID-19; Z79.4 Long term (current) use of insulin
CPT/HCPCS: 36415; 71045; 80053; 80306; 81000; 83605; 83880; 84484; 85025; 85379; 85610; 85730; 87636; 93005; 94640

== ENCOUNTER 2023-10-08 17:09 | Emergency (ER) | payer BC ==
[~2023-10-08] VITALS: Ht 167 cm; Wt 108.0 kg
[~2023-10-08 17:09] MED LIST changes: +AMLO-251 PO; +APIX2.5T PO; +ROSU20TA73 PO
[2023-10-08] MEDS ORDERED: dexAMETHasone INJ 10 MG/ML 1 ML VIAL IV STA (17:19)
[2023-10-08 17:29] LABS: BASOPHILS % (AUTO) 1 % (0-10); EOSINOPHILS # (AUTO) 0.1 10^3/uL (0.0-0.3); EOSINOPHILS % (AUTO) 2 % (0-10); HEMATOCRIT 28 % (35-52); HEMOGLOBIN 8.5 g/dL (11.5-16.0); LYMPHOCYTES # (AUTO) 1.3 10^3/uL (1.0-4.0); LYMPHOCYTES % (AUTO) 29 % (12-44); MEAN CORPUSCULAR HEMOGLOBIN 31 pg (25-34); MEAN CORPUSCULAR HGB CONC 30 g/dL (32-36); MEAN CORPUSCULAR VOLUME 103 fL (80-99); MEAN PLATELET VOLUME 9.7 fL (9.0-12.2); MONOCYTES # (AUTO) 0.6 10^3/uL (0.0-1.0); MONOCYTES % (AUTO) 13 % (0-12); NEUTROPHILS # (AUTO) 2.4 10^3/uL (1.8-7.8); NEUTROPHILS % (AUTO) 55 % (42-75); PLATELET COUNT 177 10^3/uL (130-400); WHITE BLOOD COUNT 4.3 10^3/uL (4.3-11.0)
[2023-10-08 17:39] LABS: BILIRUBIN,TOTAL 0.3 MG/DL (0.1-1.0); CALCIUM 9.6 MG/DL (8.5-10.1); MAGNESIUM 2.4 MG/DL (1.6-2.4); POTASSIUM 4.3 MMOL/L (3.6-5.0); TOTAL PROTEIN 7.1 GM/DL (6.4-8.2)
--- NOTE | 2023-10-08 17:39 | ED EENT ---
History of Present Illness General Chief Complaint: Respiratory Problems Stated Complaint: SOA Nursing Triage Note: ARRIVED VIA EMS FROM [facility]. PT WAS THERE AND BECAME SOA AND FELT FAINT. NO LOC. PT STATES HER THROAT/VOICE HAS NOT BEEN RIGHT SINCE HER HEART ABLASION FOR AFIB IN AUG. PT RECIEVES DIALYSIS T-. 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 Source: patient History of Present Illness Date Seen by Provider: Oct 08, 2023 Time Seen by Provider: 17:12 Initial Comments 52 yo female presents by EMS from [facility] clinic where she was being seen for follow up on her throat pain and sensation of swelling. This has been present since she had cardiac ablation for atrial fibrillation in August at [facility]. She became more short of breath and felt faint while at [facility] and EMS was activated. On arrival EMS reports that her oxygen saturation was 100% on room air. She does have a hoarse voice and some inspiratory stridor.She states she is due for dialysis tomorrow as she has that on Cjdhblg-Rvlvgpvu-Flrmyoox. She follows with doctors out of [facility] for her Nephrology and Cardiology. She was given a Duoneb breathing treatment by EMS en route to ED with little improvement. She states the clinic did get a chest xray and they were going to do an ultrasound of her neck/throat to look for a mass when she had her episode of feeling more short of breath and faint, so the ultrasound was not performed. Timing/Duration: abrupt (since August when she had ablation) Severity: severe Location: throat Prearrival Treatment: prescription meds (duoneb by EMS) Modifying Factors: Worse With Activity, Worse With Coughing Associated Symptoms: No change in hearing; cough; No drooling, No ear drainage, No facial pain/swelling, No fever, No malaise, No nasal congestion/drainage, No poor fluid intake, No poor solids intake, No sinus infection; sore throat; No tooth pain; voice change Allergies and Home Medications Allergies Coded Allergies: Iodinated Contrast Media (Verified Allergy, Severe, hives, soa, 10/08/23) acetaminophen (Verified Allergy, Unknown, 03/25/20) hydrocodone (Verified Allergy, Unknown, 03/25/20) sulfamethoxazole (Verified Allergy, Unknown, 03/25/20) trimethoprim (Verified Allergy, Unknown, 03/25/20) Uncoded Allergies: IVP DYE (Allergy, Unknown, 03/25/20) Patient Home Medication List Home Medication List Reviewed: Yes Amlodipine Besylate (Amlodipine Besylate) 10 Mg Tablet, 10 MG PO, (Reported) Entered as Reported by: JAYESH WARREN on 09/07/23727 Apixaban (Eliquis) 2.5 Mg Tablet, 2.5 MG PO BID, (Reported) Entered as Reported by: JAYESH WARREN on 09/07/23727 Calcium Carbonate (Tums) 300 Mg Tab.chew, 750 MG PO DAILY Prescribed by: BALTA HENRIQUEZ on 03/25/201717 Carvedilol (Carvedilol) 6.25 Mg Tablet, 6.25 MG PO DAILY Prescribed by: BALTA HENRIQUEZ on 03/25/201717 Dulaglutide (Trulicity) 1.5 Mg/0.5 Ml Pen.injctr, 1.5 MG SQ WEEK Prescribed by: BALTA HENRIQUEZ on 03/25/201717 Lisinopril (Lisinopril) 40 Mg Tablet, 40 MG PO DAILY Prescribed by: BALTA HENRIQUEZ on 03/25/201717 Ondansetron (Ondansetron Odt) 4 Mg Tab.rapdis, 4 MG SL Q4H PRN for NAUSEA/VOMITING Prescribed by: AJ TIRADO on 01/09/23 0114 Rosuvastatin Calcium (Rosuvastatin Calcium) 20 Mg Tablet, 20 MG PO DAILY, (Reported) Entered as Reported by: JAYESH WARREN on 09/07/23727 Spironolactone (Aldactone) 25 Mg Tablet, 25 MG PO DAILY Prescribed by: BALTA HENRIQUEZ on 03/25/201717 Tramadol HCl (Tramadol HCl) 50 Mg Tablet, 50 MG PO Q4H PRN for PAIN-MODERATE (5- 7) Prescribed by: AJ TIRADO on 05/20/21 2326 [Baking Soda] , 1 TSP PO DAILY Prescribed by: BALTA HENRIQUEZ on 03/25/201717 Review of Systems Review of Systems Constitutional: No chills, No fever Eyes: No Symptoms Reported Ears: No Symptoms Reported Nose: no symptoms reported Mouth: no symptoms reported Throat: see HPI, hoarse, painful swallowing Respiratory: cough; No phlegm; short of breath Cardiovascular: no symptoms reported Gastrointestinal: no symptoms reported Musculoskeletal: no symptoms reported Skin: no symptoms reported Neurological: Anxiety Past Oenswvy-Eugvco-Nvnoxr Hx Patient Social History Tobacco Use?: No Substance use?: No Alcohol Use?: No Immunizations Up To Date First/Initial COVID19 Vaccinat: Unvaccinated Seasonal Allergies Seasonal Allergies: No Past Medical History Surgery/Hospitalization HX: 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 oz. kg; 38.00 BMI Method: General Appearance: mild distress, obese Eyes: bilateral eye PERRL, bilateral eye EOMI Mouth/Throat: pharynx swelling (mild), voice changes Neck: non-tender, full range of motion, supple, normal inspection Cardiovascular: normal peripheral pulses, regular rate, rhythm Respiratory: chest non-tender, lungs clear, no respiratory distress, no accessory muscle use, stridor (inspiratory stridor) Neurologic/Psychiatric: alert, oriented x 3 Skin: normal color, warm/dry Progress/Results/Core Measures Results/Orders Lab Results Laboratory Tests Test 10/08/23 17:10 Range/Units White Blood Count 4.3 4.3-11.0 10^3/uL Red Blood Count 2.72 L 3.80-5.11 10^6/uL Hemoglobin 8.5 L 11.5-16.0 g/dL Hematocrit 28 L 35-52 % Mean Corpuscular Volume 103 H 80-99 fL Mean Corpuscular Hemoglobin 31 25-34 pg Mean Corpuscular Hemoglobin Concent 30 L 32-36 g/dL Red Cell Distribution Width 15.1 H 10.0-14.5 % Platelet Count 177 130-400 10^3/uL Mean Platelet Volume 9.7 9.0-12.2 fL Immature Granulocyte % (Auto) 0 % Neutrophils (%) (Auto) 55 42-75 % Lymphocytes (%) (Auto) 29 12-44 % Monocytes (%) (Auto) 13 H 0-12 % Eosinophils (%) (Auto) 2 0-10 % Basophils (%) (Auto) 1 0-10 % Neutrophils # (Auto) 2.4 1.8-7.8 10^3/uL Lymphocytes # (Auto) 1.3 1.0-4.0 10^3/uL Monocytes # (Auto) 0.6 0.0-1.0 10^3/uL Eosinophils # (Auto) 0.1 0.0-0.3 10^3/uL Basophils # (Auto) 0.0 0.0-0.1 10^3/uL Immature Granulocyte # (Auto) 0.0 0.0-0.1 10^3/uL Sodium Level 141 135-145 MMOL/L Potassium Level 4.3 3.6-5.0 MMOL/L Chloride Level 103 98-107 MMOL/L Carbon Dioxide Level 26 21-32 MMOL/L Anion Gap 12 5-14 MMOL/L Blood Urea Nitrogen 39 H 7-18 MG/DL Creatinine 7.36 H 0.60-1.30 MG/DL Estimat Glomerular Filtration Rate 6 BUN/Creatinine Ratio 5 Glucose Level 94 70-105 MG/DL Lactic Acid Level 1.12 0.50-2.00 MMOL/L Calcium Level 9.6 8.5-10.1 MG/DL Corrected Calcium 10.2 H 8.5-10.1 MG/DL Magnesium Level 2.4 1.6-2.4 MG/DL Total Bilirubin 0.3 0.1-1.0 MG/DL Aspartate Amino Transf (AST/SGOT) 15 5-34 U/L Alanine Aminotransferase (ALT/SGPT) 13 0-55 U/L Alkaline Phosphatase 114 40-136 U/L C-Reactive Protein 0.95 H <0.50 MG/DL Total Protein 7.1 6.4-8.2 GM/DL Albumin 3.2 3.2-4.5 GM/DL My Orders Orders - SOFIA MCGEE MD Cbc And Automated Diff (10/08/23 17:19) Comprehensive Metabolic Panel (10/08/23 17:19) Blood Culture (10/08/23 17:19) Magnesium (10/08/23 17:19) Ed Iv/Invasive Line Start (10/08/23 17:19) Crp Fs (10/08/23 17:19) Lactic Acid Analyzer (10/08/23 17:19) Dexamethasone Injection (Dexamethasone (10/08/23 17:19) Ct Neck (Soft Tissue) Wo (10/08/23 17:19) Ipratropium/Albuterol Inh Soln (Ipratrop (10/08/23 18:15) Lorazepam Injection (Lorazepam Injection (10/08/23 18:15) Svn Small Volume Nebulizer (10/08/23 18:15) Ipratropium/Albuterol Inh Soln (Ipratrop (10/08/23 18:16) Racepinephrine 2.25% (Racepinephrine 2.2 (10/08/23 19:05) Hypertonic Saline 3% Neb (Rt-Hypertonic (10/08/23 19:05) Svn Small Volume Nebulizer (10/08/23 19:05) Hydralazine Injection (Hydralazine Injec (10/08/23 19:12) Vital Signs/I&O 10/08/23 17:09 Temp 36.6 Pulse 98 Resp 16 B/P (MAP) 186/84 (118) O2 Delivery Room Air Blood Pressure Mean: 118 Progress Progress Note #1: Progress Note Differential diagnosis includes throat mass, pharyngeal swelling, pharyngeal trauma from intubation, anxiety. Obtain basic labs including complete blood count, comprehensive metabolic profile, blood cultures, lactic acid, CRP. CT scan of the soft tissue neck wit hout IV contrast to look for possible mass or swelling. Administer dexamethasone 10 mg IV x1 to try and help with throat swelling and stridor. Progress Note #2: Time: 18:15 Progress Note Labs showed a normal white blood cell count 4.3. The hemoglobin was showing anemia with 8.5. Her comprehensive metabolic profile showed her chronic renal failure with BUN of 39 and creatinine of 7.36. Lactic acid was normal at 1.12. She did have elevated CRP at 0.95. She was sitting in the wheelchair after her CT scan of the soft tissue neck and started having more trouble with her breathing. She became very anxious and agitated about her breathing. Her oxygen saturation staying 97%. This was on room air. Despite the dexamethasone injection she continued to feel like there was swelling and significant hoarseness with her voice. She is requesting a breathing treatment to try and help with her throat and voice. I have ordered a DuoNeb breathing treatment as well as a milligram of Ativan to try and help with the anxiety component of feeling like she could not breathe. As I was placing these orders her CT report came back for her soft tissue neck. This showed asymmetric soft tissue thickening along the left false vocal folds and effacement of the left piriform sinus. With her having stridor as well as increased difficulty breathing and now showing signs of mass or swelling on the left vocal cords we will recommend transfer to facility that had an ear nose and throat doctors and nephrology. Since she sees nephrology at [facility] as well as she recently had a cardiology procedure done there for her ablation will check to see if they have any bed availability. I discussed this with the patient and explained that she has swelling and the treatments that I have available here in the emergency department in [place] are the steroid and the breathing treatment which we have already done. She continues to feel like the swelling was significant and affecting her breathing as well as her voice. I recommended that she be transferred to [facility] so that ENT could see her about the throat. Also her cold roll operator is there so they can help to facilitate her inpatient dialysis tomorrow since she would miss her outpatient dialysis appointment. Patient was very agitated and upset about the possibility of transfer. She refused the Ativan. Because she was still having trouble breathing and I did not have any other treatment options to help her she was agreeable to transfer for ENT throat specialist and where she could get dialysis. 1822 call placed to [facility] transfer center and spoke with SHANTA Le. She took the basic information on the patient and stated that she would call back once she had a chance to check about facility capacity and capability. Progress Note #3: Time: 19:12 Progress Note Family member came out of the room concerned that her blood pressure was elevated over 186/109. Advised that we were watching the blood pressure and I were aware that it was elevated but I felt that it was more combination of situational blood pressure elevation as well as her chronic history of hypertension and renal failure. However since family was so concerned about it I did order a dose of hydralazine 10 mg IV. 1923 when the nurse went in to administer the hydralazine for her blood pressure they had rechecked her pressure and it was down to 168/88. Patient voiced that she felt fine and did not feel that that blood pressure was higher dangerous for her so she refused the hydralazine. [employer] helicopter is on the way and should be arriving in approximately 20 minutes. Will administer a racemic epinephrine breathing treatment just prior to transport with air transport. Hopefully this will help stabilize her airway and breathing with stridor prior to transport as she was refusing Ativan because she does not like how it makes her feel. 2009 [employer] helicopter left the ED with the patient. She did receive a racemic epi treatment just prior to arrival of the helicopter crew. She continued to have a hoarse voice and stridor but seemed to be improved after the racemic epi and since she did have the Decadron around 1730 Diagnostic Imaging Diagonstic Imaging: CT Plain Films/CT/US/NM/MRI: other (Soft tissue neck) Comments [facility] [place] NAME: ODESSA ENRIQUE [facility] REC#: [id number] PT STATUS: REG ER : 1970 PHYSICIAN: SOFIA MCGEE MD ADMIT DATE: 10/08/23/ER FS Signed Date of Exam:10/08/23 CT NECK (SOFT TISSUE) WO PROCEDURE: CT neck soft tissue without contrast. TECHNIQUE: Multiple contiguous axial images were obtained through the neck without the use of intravenous contrast. Auto Exposure Controls were utilized during the CT exam to meet ALARA standards for radiation dose reduction. INDICATION: Throat swelling and dysphagia. COMPARISON: None available. FINDINGS: The airway\\ is widely patent. There is asymmetric soft tissue thickening along the left false vocal folds which results in effacement of the left piriform sinus. Epiglottis is not thickened. No mass at the base of the tongue. No peritonsillar fluid collection. Additionally there is no retropharyngeal abscess. No cervical lymphadenopathy. The parotid, submandibular and thyroid glands are all normal. Lung apices are clear. No worrisome focal osseous lesion within cervical spine. Focally advanced degenerative disc disease at C5-C6 causes mild to moderate spinal canal stenosis. IMPRESSION: 1. Asymmetric soft tissue thickening in the left false vocal fold causes mild narrowing of the supraglottic airway. This is of unknown etiology, although neoplasm is a possibility. ENT consultation with direct visualization is suggested for further management. 2. No cervical lymphadenopathy. 3. No fluid collection within the neck to indicate abscess. Dictated by: Dictated on workstation # [id number] Dict: 10/08/231754 Trans: 10/08/231827 CVB [id number] Interpreted by: ANNE ZHANG MD Electronically signed by: ANNE ZHANG MD 10/08/231827 Reviewed: Reviewed by Me Critical Care Note Critical Care Total Time (minutes) 45 minutes Progress I spent at least 45 minutes of critical care time with the patient. Separately billable procedures. Time was spent obtaining history from patient and family, ordering test and reviewing results, ordering interventions and reviewing response, discussion with consultants, documentation in the chart. Patient was at risk of respiratory collapse and compromised due to her stridor and difficulty breathing. She required my immediate direct intervention and management to help stabilize her condition and arrange for transfer to higher level of care. Departure Impression Primary Impression: Vocal cord mass Additional Impressions: Hoarseness Swelling of throat Stridor Disposition: [facility] Condition: Critical Transfer Transfer Reason: Exceeds level of care (Needs ENT and Nephrology) Time Spoke to Accepting Phy: 18:51 Transfer Progress Notes Discussed with Dr. Samayoa from the emergency department at [facility]. I have reviewed patient's presentation and history as well as her current vital signs. She has swelling or mass to the left vocal cord and vocal folds causing effacement of the piriform sinus. She is having stridorous breathing. Despite breathing treatment and Decadron 10 mg IV she was continuing to have stridor. With the finding for the mass and swelling in her vocal cord area as well as the continued stridor I had requested that she be transferred to a facility that would have ENT. Since she also is a dialysis patient with Dr. Bay at [facility] she would also benefit from going there for nephrology services. She is due for dialysis tomorrow. They requested that her images be clouded and to call them back when the patient was actually leaving with an ETA. Transfer Facility: [facility] Method of Transfer: Air Departure-Patient Inst. Referrals: AZAEL EDWARDS APRN (PCP/Family) Primary Care Physician SOFIA MCGEE MD Oct 08, 2023 17:39
[2023-10-08 17:45] LABS: CREATININE SERUM 7.36 MG/DL (0.60-1.30)
[2023-10-08 17:46] LABS: ALBUMIN 3.2 GM/DL (3.2-4.5)
--- NOTE | 2023-10-08 18:13 | Diagnostic Imaging Report ---
PROCEDURE: CT neck soft tissue without contrast. TECHNIQUE: Multiple contiguous axial images were obtained through the neck without the use of intravenous contrast. Auto Exposure Controls were utilized during the CT exam to meet ALARA standards for radiation dose reduction. INDICATION: Throat swelling and dysphagia. COMPARISON: None available. FINDINGS: The airway\ is widely patent. There is asymmetric soft tissue thickening along the left false vocal folds which results in effacement of the left piriform sinus. Epiglottis is not thickened. No mass at the base of the tongue. No peritonsillar fluid collection. Additionally there is no retropharyngeal abscess. No cervical lymphadenopathy. The parotid, submandibular and thyroid glands are all normal. Lung apices are clear. No worrisome focal osseous lesion within cervical spine. Focally advanced degenerative disc disease at C5-C6 causes mild to moderate spinal canal stenosis. IMPRESSION: 1. Asymmetric soft tissue thickening in the left false vocal fold causes mild narrowing of the supraglottic airway. This is of unknown etiology, although neoplasm is a possibility. ENT consultation with direct visualization is suggested for further management. 2. No cervical lymphadenopathy. 3. No fluid collection within the neck to indicate abscess. Dictated by: Dictated on workstation # [id number]
[2023-10-08] MEDS ORDERED: RT-Ipratropium/Albuterol NEB 3 ML VIAL INH STA (18:15)
[2023-10-08] MEDS ORDERED: RT-Ipratropium/Albuterol NEB 3 ML VIAL ONE (18:16)
[2023-10-08] MEDS ORDERED: RT-RACEPINEPHRINE 2.25% 0.5 ML VIAL INH STA (19:05)
[2023-10-08] MEDS ORDERED: RT-HYPERTONIC SALINE 3% 4 ML NEB INH STA (19:05)
[2023-10-08] MEDS ORDERED: hydrALAZINE INJECTION 20 MG/ML VIAL IV STA (19:12)
[2023-10-08 20:10] VITALS: BP 149/89
== END 2023-10-08 20:10 | disposition short-term general hospital (02) ==
LOC: EDUNIT# 17:09 → ER FS 17:11
DX: J38.3 Other diseases of vocal cords (principal); R49.0 Dysphonia; E66.9 Obesity, unspecified; E11.9 Type 2 diabetes mellitus without complications; Z68.38 Body mass index [BMI] 38.0-38.9, adult; Z79.4 Long term (current) use of insulin
CPT/HCPCS: 36415; 70490; 80053; 83605; 83735; 85025; 86141; 87040; 94640; 96374